=== PATIENT | male | born 1935 | race Caucasian/White ===

== ENCOUNTER 2017-09-19 09:45 | Outpatient (RCR) | payer MEDICARE, OTHER, SELFPAY ==
[2017-06-11 09:09] VITALS: TEMP 36.5
--- NOTE | 2017-06-12 10:06 | PT.OTN ---
Current Diagnoses Other symptoms and signs involving the musculoskeletal system (06/12/17) Weakness (06/12/17) On June 11, 2017 our therapy services consisting of Speech, Occupational, and Physical therapy transitioned from [employer] electronic documentation system to a new [employer] electronic system. All documentation prior to June 11 can be found under [employer] saved data. From June 11 forward, all medical record documentation will be in [employer].
--- NOTE | 2017-06-12 17:18 | PT.OTN ---
Current Diagnoses Other symptoms and signs involving the musculoskeletal system (06/12/17) Weakness (06/12/17) Physical Therapy Treatment Note PT-OP-A Visit Information Start: 06/12/17 10:16 Freq: Status: Active Protocol: Activity Type Activity Date Activity User E-Sign Co-Sign Detail Recorded Client Recorded Date Recorded By Document 06/12/17 12:41 GGD [email or web address] 06/12/17 12:47 GGD 06/12/17 12:41 Out-Patient Physical Therapy Visit Information [Visit Information] -Visit Type Treatment Note -Visit Note 04/20 visit for G-codes -Visit Start Time 12:00 -Visit Stop Time 12:43 -Total Visit Minutes 43 -Visit Number 12 -Number of UTILITIES OPERATOR Visits 1 [Evaluation Information] -Evaluation Date 05/03/17 PT-OP-C Subjective Start: 06/12/17 10:16 Freq: Status: Active Protocol: Activity Type Activity Date Activity User E-Sign Co-Sign Detail Recorded Client Recorded Date Recorded By Document 06/12/17 16:59 GGD [email or web address] 06/12/17 17:17 GGD 06/12/17 16:59 OP-PT Subjective [Patient Comments] -Patient Comments Pt states that his muscle tired after last visit. He is able to but his socks on when sitting on edge of bed. -Patient Reported Progress Improving PT-OP-Q Treatments Start: 06/12/17 10:16 Freq: Status: Active Protocol: Activity Type Activity Date Activity User E-Sign Co-Sign Detail Recorded Client Recorded Date Recorded By Document 06/12/17 16:59 GGD [email or web address] 06/12/17 17:17 GGD 06/12/17 16:59 Cardio Equipment [Recumbent Elliptical (Biodex)] -Duration (Minutes) 12 -Resistance 2 -Seat Position 16 -Other Arms for last 2 minutes Gym Equipment [Cable Column (Body Solid)] Leg Extension -Resistance 30 -Reps/Time 2 x 15 Leg Curl -Resistance 45 -Reps/Time 2 x 15 [Shuttle Recovery] Bilateral Squats -Resistance 100# -Shuttle Recovery Platform Stable -Reps/Time 2 x 15 Therapeutic Exercises [Supine Exercises] 1 -Supine Exercise Name Iliacus stretch -Side bilateral -Reps/Minutes 2 [Standing Exercises] 2 -Standing Exercise Name Hip Adduction -Side bilateral -Resistance Level 2 -Equipment Used Thera band -Reps/Minutes 15 1 -Standing Exercise Name Hip Abduction -Side bilateral -Resistance Level 2 -Equipment Used Thera band -Reps/Minutes 15 PT-OP-T Assessment and Plan Start: 06/12/17 10:16 Freq: Status: Active Protocol: Activity Type Activity Date Activity User E-Sign Co-Sign Detail Recorded Client Recorded Date Recorded By Document 06/12/17 16:59 GGD [email or web address] 06/12/17 17:17 GGD 06/12/17 16:59 Physical Therapy Assessment [Assessment Summary] -Assessment Pt improving with strengthening and decrease fatigue during exercises. He has improved upright posture in standing. Physical Therapy Plan [Frequency and Duration] -Frequency of Treatment 2x/Week -Duration of Treatment 2 months -Plan of Care Start Date 06/03/17 -Plan of Care End Date 08/02/17 [Next Visit Focus/Plan] -Next Visit Plan Progress under current plan. Including progressing LE strengthening, Sit to stand from chair without UE, progress ability for floor transfers .
--- NOTE | 2017-06-18 10:08 | PT.OTN ---
Current Diagnoses Other symptoms and signs involving the musculoskeletal system (06/17/17) Weakness (06/17/17) Physical Therapy Treatment Note PT-OP-A Visit Information Start: 06/12/17 10:16 Freq: Status: Active Protocol: Activity Type Activity Date Activity User E-Sign Co-Sign Detail Recorded Client Recorded Date Recorded By Document 06/17/17 09:44 LR [id number] 06/17/17 16:06 [facility] 06/17/17 09:44 Out-Patient Physical Therapy Visit Information [Visit Information] -Visit Type Treatment Note -Visit Start Time 09:07 -Visit Stop Time 09:50 -Visit Number 13 -Number of FOREIGN LAW CONSULTANT Visits 1 [Evaluation Information] -Evaluation Date 05/03/17 PT-OP-C Subjective Start: 06/12/17 10:16 Freq: Status: Active Protocol: Activity Type Activity Date Activity User E-Sign Co-Sign Detail Recorded Client Recorded Date Recorded By Document 06/17/17 09:44 LR [id number] 06/17/17 09:44 LRN 06/17/17 09:44 OP-PT Subjective [Patient Comments] -Patient Comments Feeling good today. -Patient Reported Progress Improving PT-OP-Q Treatments Start: 06/12/17 10:16 Freq: Status: Active Protocol: Activity Type Activity Date Activity User E-Sign Co-Sign Detail Recorded Client Recorded Date Recorded By Document 06/17/17 09:44 LRN [id number] 06/17/17 09:43 LRN 06/17/17 09:44 Cardio Equipment [Recumbent Stepper (Sci-Fit)] -Duration (Minutes) 12 -Resistance 3 -Seat Position 16 -Other Arms the last 2 minutes Gym Equipment [Cable Column (Body Solid)] Leg Extension -Resistance 35, 30, 30 -Reps/Time 10 each Leg Curl -Resistance 50 -Reps/Time 20,10 reps [Shuttle Recovery] Unilateral Squats -Details For strengthening for kneel to stand -Resistance 50# -Shuttle Recovery Platform Stable -Reps/Time 15 bilaterally Bilateral Squats -Resistance 100#, 112# -Shuttle Recovery Platform Stable -Reps/Time 2x15 Therapeutic Exercises [Supine Exercises] 1 -Supine Exercise Name Iliacus stretch -Side bilateral -Reps/Minutes 2 [Other Exercises] 2 -Other Exercise Name Kneeling to independent beauty consultant parallel bars -Side bilateral -Reps/Minutes 2 1 -Other Exercise Name Stretch to Iliacus f/b 10 buttock squeezes: in kneeling in parallel bars -Side bilateral -Reps/Minutes 4 -Comments Hold 60 sec each Self-Care/Home Management Treatment [Activities] -Self-Care/Home Management Activities Instructed pt in HEP of SLS in safe corner with chair in front. PT-OP-T Assessment and Plan Start: 06/12/17 10:16 Freq: Status: Active Protocol: Activity Type Activity Date Activity User E-Sign Co-Sign Detail Recorded Client Recorded Date Recorded By Document 06/17/17 09:44 LRN [email or web address] 06/18/17 09:33 LRN 06/17/17 09:44 Physical Therapy Assessment [Impairments] -Impairments Balance Posture ROM Strength -Other Impairments Self care: program needed. [Assessment Summary] -Assessment Pt able to position in kneeling with greater ease. R Iliopsoas is more retricted than L in mobility. Strength is improving in LE 's. Physical Therapy Plan [Frequency and Duration] -Frequency of Treatment 2x/Week -Duration of Treatment 6 weeks left -Plan of Care Start Date 06/03/17 -Plan of Care End Date 08/02/17 [Next Visit Focus/Plan] -Next Visit Plan Progress under current plan. Including progressing LE strengthening, Sit to stand from chair without UE, progress ability for floor transfers . Add Balance ex's.
--- NOTE | 2017-06-20 10:51 | PT.OTN ---
Current Diagnoses Other symptoms and signs involving the musculoskeletal system (06/20/17) Weakness (06/20/17) Physical Therapy Treatment Note PT-OP-A Visit Information Start: 06/12/17 10:16 Freq: Status: Active Protocol: Document 06/20/17 10:42 [facility] (Rec: 06/20/17 10:51 [facility] [email or web address]) Out-Patient Physical Therapy Visit Information Visit Information Visit Start Time 09:45 Visit Stop Time 10:30 Total Visit Minutes 45 Visit Number 14 Number of STAPLER MACHINE Visits 0 PT-OP-C Subjective Start: 06/12/17 10:16 Freq: Status: Active Protocol: Document 06/20/17 10:42 [facility] (Rec: 06/20/17 10:51 [facility] [email or web address]) OP-PT Subjective Patient Comments Patient Comments Gracy reports he has days when he feels stronger and other days he doesn't Patient Reported Progress Improving PT-OP-Q Treatments Start: 06/12/17 10:16 Freq: Status: Active Protocol: Document 06/20/17 10:42 [facility] (Rec: 06/20/17 10:51 [facility] [email or web address]) Cardio Equipment Recumbent Stepper (Sci-Fit) Duration (Minutes) 12 Resistance 3 Seat Position 16 Other Arms the last 2 minutes Gym Equipment Cable Column (Body Solid) Leg Extension Resistance 40 Reps/Time 3 sets of 10 reps Leg Curl Resistance 50 Reps/Time 3 sets of 10 reps Shuttle Recovery Bilateral Squats Resistance 112# Shuttle Recovery Platform Stable Reps/Time 3 sets of 10 reps Therapeutic Exercises Supine Exercises 1 Supine Exercise Name Iliacus stretch Side bilateral Reps/Minutes 2 Standing Exercises 4 Standing Exercise Name mini lunges in parallel bars Reps/Minutes 10 each side 3 Standing Exercise Name sit - stand with chair Reps/Minutes 2 sets 10 reps Comments verbal cueing for hip hinge Other Exercises 2 Other Exercise Name Kneeling to maintenance shop laborer parallel bars Side bilateral Reps/Minutes 2 1 Other Exercise Name Stretch to Iliacus f/b 10 buttock squeezes: in kneeling in parallel bars Side bilateral Reps/Minutes 4 Comments Hold 60 sec each PT-OP-T Assessment and Plan Start: 06/12/17 10:16 Freq: Status: Active Protocol: Document 06/20/17 10:42 [facility] (Rec: 06/20/17 10:51 [facility] [email or web address]) Physical Therapy Assessment Impairments Impairments Balance Posture ROM Strength Other Impairments Self care: program needed. Assessment Summary Assessment it was much easier for the patient to get up from a kneeling position with his right leg in front. Right hip is tighter in the hip flexor. He is requiring verbal cues for sit- stand to hinge at the hips. This hip hinge is very difficult for Sony to do Physical Therapy Plan Frequency and Duration Frequency of Treatment 2x/Week Plan of Care Start Date 06/03/17 Plan of Care End Date 08/02/17 Therapeutic Interventions Therapeutic Interventions Balance Training Home Exercise Program Neuromuscular Re-education Self-Care/Home Management Therapeutic Activities Therapeutic Exercises Next Visit Focus/Plan Next Visit Plan revisit sit to stand and hip hinge, continue to work on standing up from a kneeling position
--- NOTE | 2017-06-24 12:46 | PT.OTN ---
Current Diagnoses Other symptoms and signs involving the musculoskeletal system (06/24/17) Weakness (06/24/17) Physical Therapy Treatment Note PT-OP-A Visit Information Start: 06/12/17 10:16 Freq: Status: Active Protocol: Document 06/24/17 09:10 LRN (Rec: 06/24/17 11:04 LRN [id number]) Out-Patient Physical Therapy Visit Information Visit Information Visit Type Treatment Note Visit Note 08/20 Visit Start Time 09:03 Visit Stop Time 09:46 Total Visit Minutes 43 Visit Number 15 Number of MEDICAL EQUIPMENT REPAIRER Visits 0 Evaluation Information Evaluation Date 05/03/17 PT-OP-C Subjective Start: 06/12/17 10:16 Freq: Status: Active Protocol: Document 06/24/17 09:10 LRN (Rec: 06/24/17 09:45 LRN [id number]) OP-PT Subjective Patient Comments Patient Comments Yesterday was feeling really good, most of the day went without a cane. Today legs feel weak. Patient Reported Progress Worse PT-OP-Q Treatments Start: 06/12/17 10:16 Freq: Status: Active Protocol: Document 06/24/17 09:10 LRN (Rec: 06/24/17 09:45 LRN [id number]) Cardio Equipment Recumbent Stepper (Sci-Fit) Duration (Minutes) 12 Resistance 3 Seat Position 17 Other Arms the last 2 minutes Gym Equipment Cable Column (Body Solid) Leg Extension Resistance 30 Reps/Time 15,10,5, 10 reps Leg Curl Resistance 50 Reps/Time 4 sets of 10 reps Shuttle Recovery Bilateral Squats Details Pt in squat position with Multifidus contracted to asst Gluteal strengthening Resistance 100# Shuttle Recovery Platform Stable Reps/Time 3 sets of 15 reps Therapeutic Exercises Standing Exercises 1 Standing Exercise Name Hip Abduction Side bilateral Reps/Minutes 15 Comments Focus on correct posture with exercise Other Exercises 2 Comments Held, pt feeling too weak 1 Other Exercise Name Stretch to Iliacus f/b 10 buttock squeezes: in kneeling in parallel bars Side bilateral Reps/Minutes 2 reps Comments Hold 60 sec each PT-OP-T Assessment and Plan Start: 06/12/17 10:16 Freq: Status: Active Protocol: Document 06/24/17 09:10 LRN (Rec: 06/24/17 09:45 LRN [id number]) Physical Therapy Assessment Impairments Impairments Balance Posture ROM Strength Other Impairments Self care: program needed. Assessment Summary Assessment Pt has less tolerance to exercise today than previously due to his feeling weak. Pt may be a little dehydrated with change in weather and reported no change in fluid intake with a couple cups of coffee. Pt agreeable to drinking water with cardio-exercise. Physical Therapy Plan Frequency and Duration Frequency of Treatment 2x/Week Duration of Treatment 5 weeks left Plan of Care Start Date 06/03/17 Plan of Care End Date 08/02/17 Therapeutic Interventions Therapeutic Interventions Balance Training Home Exercise Program Neuromuscular Re-education Self-Care/Home Management Therapeutic Activities Therapeutic Exercises Next Visit Focus/Plan Next Visit Plan Assess sit to stand and hip hinge if pt feeling better next visit, continue to work on standing up from a kneeling position, and corner balance training review.
--- NOTE | 2017-06-24 15:05 | PT.OTN ---
Current Diagnoses Other symptoms and signs involving the musculoskeletal system (06/24/17) Weakness (06/24/17) Physical Therapy Treatment Note PT-OP-A Visit Information Start: 06/12/17 10:16 Freq: Status: Active Protocol: Document 06/24/17 09:10 LRN (Rec: 06/24/17 11:04 LRN [id number]) Out-Patient Physical Therapy Visit Information Visit Information Visit Type Treatment Note Visit Note 08/20 Visit Start Time 09:03 Visit Stop Time 09:46 Total Visit Minutes 43 Visit Number 15 Number of COUNTY COMMISSIONER Visits 0 Evaluation Information Evaluation Date 05/03/17 PT-OP-C Subjective Start: 06/12/17 10:16 Freq: Status: Active Protocol: Document 06/24/17 09:10 LRN (Rec: 06/24/17 09:45 LRN [id number]) OP-PT Subjective Patient Comments Patient Comments Yesterday was feeling really good, most of the day went without a cane. Today legs feel weak. Patient Reported Progress Worse PT-OP-Q Treatments Start: 06/12/17 10:16 Freq: Status: Active Protocol: Document 06/24/17 09:10 LRN (Rec: 06/24/17 09:45 LRN [id number]) Cardio Equipment Recumbent Stepper (Sci-Fit) Duration (Minutes) 12 Resistance 3 Seat Position 17 Other Arms the last 2 minutes Gym Equipment Cable Column (Body Solid) Leg Extension Resistance 30 Reps/Time 15,10,5, 10 reps Leg Curl Resistance 50 Reps/Time 4 sets of 10 reps Shuttle Recovery Bilateral Squats Details Pt in squat position with Multidus contracted to asst Gluteal strengthening Resistance 100# Shuttle Recovery Platform Stable Reps/Time 3 sets of 15 reps Therapeutic Exercises Standing Exercises 1 Standing Exercise Name Hip Abduction Side bilateral Reps/Minutes 15 Comments Focus on correct posture with exercise Other Exercises 2 Comments Held, pt feeling too weak 1 Other Exercise Name Stretch to Iliacus f/b 10 buttock squeezes: in kneeling in parallel bars Side bilateral Reps/Minutes 2 reps Comments Hold 60 sec each PT-OP-T Assessment and Plan Start: 06/12/17 10:16 Freq: Status: Active Protocol: Document 06/24/17 09:10 LRN (Rec: 06/24/17 09:45 LRN [id number]) Physical Therapy Assessment Impairments Impairments Balance Posture ROM Strength Other Impairments Self care: program needed. Assessment Summary Assessment Pt has less tolerance to exercise today than previously due to his feeling weak. Pt may be a little dehydrated with change in weather and reported no change in fluid intake with a couple cups of coffee. Pt agreeable to drinking water with cardioexercise. Physical Therapy Plan Frequency and Duration Frequency of Treatment 2x/Week Duration of Treatment 5 weeks left Plan of Care Start Date 06/03/17 Plan of Care End Date 08/02/17 Therapeutic Interventions Therapeutic Interventions Balance Training Home Exercise Program Neuromuscular Re-education Self-Care/Home Management Therapeutic Activities Therapeutic Exercises Next Visit Focus/Plan Next Visit Plan Assess sit to stand and hip hinge if pt feeling better next visit, continue to work on standing up from a kneeling position, and corner balance training review. Progress note in 2 visits.
--- NOTE | 2017-06-27 15:25 | PT.OTN ---
Current Diagnoses Other symptoms and signs involving the musculoskeletal system (06/27/17) Weakness (06/27/17) Physical Therapy Treatment Note PT-OP-A Visit Information Start: 06/12/17 10:16 Freq: Status: Active Protocol: Document 06/27/17 09:06 LRN (Rec: 06/27/17 13:43 LRN [id number]) Out-Patient Physical Therapy Visit Information Visit Information Visit Type Treatment Note Visit Note 09/20 Visit Start Time 09:05 Visit Stop Time 09:52 Total Visit Minutes 47 Visit Number 16 Number of CODE MACHINE OPERATOR Visits 0 Evaluation Information Evaluation Date 05/03/17 PT-OP-C Subjective Start: 06/12/17 10:16 Freq: Status: Active Protocol: Document 06/27/17 09:05 LRN (Rec: 06/27/17 09:47 LRN [id number]) OP-PT Subjective Patient Comments Patient Comments Spouse states he is sore, pt states he is okay. States yesterday was the best day so far because legs feel strong. Still a problem getting up into machinery. Patient Reported Progress Improving PT-OP-Q Treatments Start: 06/12/17 10:16 Freq: Status: Active Protocol: Document 06/27/17 09:05 LRN (Rec: 06/27/17 09:47 LRN [id number]) Cardio Equipment Recumbent Stepper (Sci-Fit) Duration (Minutes) 12 Resistance 3 Seat Position 17 Other Arms the last 2 minutes Gym Equipment Cable Column (Body Solid) Leg Extension Resistance 35#, 30# Reps/Time 8, 10x3 respectively Leg Curl Resistance 50 Reps/Time 4 sets of 10 reps Shuttle Recovery Bilateral Squats Details Pt in squat position with Multifidus contracted to asst Gluteal strengthening Resistance 100# Shuttle Recovery Platform Stable Reps/Time 3 sets of 15 reps Therapeutic Exercises Standing Exercises 2 Standing Exercise Name Stepping foot up on 1' height step Side bilateral Reps/Minutes 10x2 Comments Pt needed rests between bouts 1 Standing Exercise Name Hip Abduction Side bilateral Reps/Minutes 15 x 2 Comments Focus on correct posture with exercise Other Exercises 2 Other Exercise Name Kneel to stand Side bilateral Reps/Minutes 2 reps 1 Other Exercise Name Stretch to Iliacus f/b 10 buttock squeezes: in kneeling in parallel bars Side bilateral Reps/Minutes 2 reps Comments Hold 60 sec stretch, 2 sec PT-OP-T Assessment and Plan Start: 06/12/17 10:16 Freq: Status: Active Protocol: Document 06/27/17 09:05 LRN (Rec: 06/27/17 09:47 LRN [id number]) Physical Therapy Assessment Progress Towards Goals Progress Towards Goals Progressing Toward Goals Assessment Summary Assessment Pt gluteals appear atrophied; therefore he is having difficulty kneel to stand. Further strengthening needed for gluteals. Physical Therapy Plan Frequency and Duration Frequency of Treatment 2x/Week Duration of Treatment 5 weeks left Plan of Care Start Date 06/03/17 Plan of Care End Date 08/02/17 Therapeutic Interventions Therapeutic Interventions Balance Training Home Exercise Program Neuromuscular Re-education Self-Care/Home Management Therapeutic Activities Therapeutic Exercises Next Visit Focus/Plan Next Visit Plan Remeasure, PN. Focus next 4 weeks on floor to stand and motion of stepping up into high machinery.
--- NOTE | 2017-07-02 16:17 | PT.OTN ---
Addendum entered and electronically signed by Maria Victoria Pearson, PT 07/02/17 16:18: Pt seen 07/01/17, note written 07/02/17. Original Note: Current Diagnoses Other symptoms and signs involving the musculoskeletal system (07/01/17) Weakness (07/01/17) Physical Therapy Treatment Note PT-OP-A Visit Information Start: 06/12/17 10:16 Freq: Status: Active Protocol: Document 07/01/17 09:07 LRN (Rec: 07/01/17 09:50 LRN [id number]) Out-Patient Physical Therapy Visit Information Visit Information Visit Type Treatment Note Visit Note 10/21 - PN Visit Start Time 09:07 Visit Stop Time 09:59 Total Visit Minutes 52 Visit Number 17 Number of TIEING MACHINE OPERATOR Visits 0 Evaluation Information Evaluation Date 05/03/17 PT-OP-C Subjective Start: 06/12/17 10:16 Freq: Status: Active Protocol: Document 07/01/17 09:07 LRN (Rec: 07/01/17 09:50 LRN [id number]) OP-PT Subjective Patient Comments Patient Comments Did 9 hrs work using arms and L foot. States he almost fell coming into the clinic because he was sleepy. States he is able to get into his machine without help. States he modified how he was putting his socks/shoes on so now he has no trouble. Patient Reported Progress Improving Patient Questionnaires ABC- Activity Specific Balance Confidence Scale ABC Score 985/16=61.5 ABC Functional Impairment 20 to <40% Impaired (Score 61- 80) PT-OP-E Functional Tests Start: 07/02/17 15:42 Freq: Status: Active Protocol: Document 07/01/17 09:07 LRN (Rec: 07/02/17 15:45 LRN [id number]) Functional Tests Five Times Sit to Stand Test Score 29 secs Timed Up and Go (TUG) Score 14 sec's Comments No cane - 14 sec's. With cane - 12 sec's TUG Impairment Rating 40 to <60% Impaired (Score 14- 15) PT-OP-M Strength Start: 06/12/17 10:16 Freq: Status: Active Protocol: Document 07/01/17 09:07 LRN (Rec: 07/01/17 09:50 LRN [id number]) Hip Strength Hip Manual Muscle Testing Right Flexion (L2) 3- Fair- Extension (S1) 3- Fair- Abduction 3- Fair- Adduction 1 Trace External Rotation 3- Fair- Internal Rotation 4 Good Left Flexion (L2) 3 Fair Extension (S1) 2+ Poor+ Abduction 3- Fair- Adduction 1 Trace External Rotation 3- Fair- Internal Rotation 4 Good PT-OP-Q Treatments Start: 06/12/17 10:16 Freq: Status: Active Protocol: Document 07/01/17 09:07 LRN (Rec: 07/01/17 09:50 LRN [id number]) Cardio Equipment Recumbent Stepper (Sci-Fit) Duration (Minutes) 10 Resistance 3 Seat Position 15 Gym Equipment Cable Column (Body Solid) Leg Extension Resistance 35#, 30# Reps/Time 10x2, 10 respectively Leg Curl Resistance 50 Reps/Time 4 sets of 10 reps Therapeutic Exercises Other Exercises 3 Other Exercise Name General Hip strengthening 4- way on plinth Reps/Minutes 4-5 reps each 1 Other Exercise Name Stretch to Iliacus f/b 10 buttock squeezes: in kneeling in parallel bars Side bilateral Reps/Minutes 2 reps Comments Hold 60 sec stretch, 2 sec PT-OP-T Assessment and Plan Start: 06/12/17 10:16 Freq: Status: Active Protocol: Document 07/01/17 09:07 LRN (Rec: 07/01/17 09:50 LRN [id number]) Physical Therapy Assessment Rehab Potential Rehabilitation Potential Good Impairments Impairments Balance Posture ROM Strength Other Impairments Self care: program needed. 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 Barriers to Rehabilitation See above. Goals Seven Impairment Decreased endurance per 5TSTS of 20 secs with use of arms. Cellophaner Goal (LTG) Pt will be able to get up from chair without use of arm rests. LTG Duration 08/02/17. Six Impairment TUG Score 12-13 (20% to <40% impaired) Long-Term Goal (LTG) Improve Balance: TUG Score: 11 or less (1% < 20% impaired). LTG Duration 08/02/17 Five Impairment Decreased LE strength Long-Term Goal (LTG) Pt will demonstrate improved LE strength by 1/2 grade to be able to get off the floor with use of chair for assist. LTG Duration 08/02/17 Four Impairment Thoracic weakness Long-Term Goal (LTG) Pt will be able to improve core strength 1/2 grade to decrease his risk of falling. LTG Duration 08/02/17 Three Impairment Hips flexed 10 deg's in standing Short Term Goal (STG) Pt will be able to static stand without hip/knees flexed STG Duration 07/16/17 Two Impairment Decreased postural awareness of good sitting posture Short Term Goal (STG) PT will be able to self correct his sitting posture with cuing. STG Duration 07/16/17. One Impairment Lacks appropriate HEP Cellophaner Goal (LTG) Pt independent with HEP/Self care. LTG Duration 08/02/17 Progress Towards Goals Progress Comments The pt has been started on a HEP for his current status. His standing posture is more upright, but tightness persists at his hips causing some forward bending with stance and gait. His LE strength is improving. His chemotherapy hinders his strengthening progression; therefore further skilled physical therapy to improve his strength and stability in order to decrease his risk of falling and improve his functional level is recommended. Assessment Summary Assessment The pt remains weak in his gluteal muscles and is generally deconditioned. Recommend further physical therapy. Physical Therapy Plan Frequency and Duration Frequency of Treatment 2x/Week Duration of Treatment 5 weeks Plan of Care Start Date 06/03/17 Plan of Care End Date 08/02/17 Therapeutic Interventions Therapeutic Interventions Balance Training Home Exercise Program Neuromuscular Re-education Self-Care/Home Management Therapeutic Activities Therapeutic Exercises Next Visit Focus/Plan Next Visit Plan Focus next 5 weeks on improving proving standing posture, sit to stand ability, floor to stand and motion of stepping up into high machinery. [ End ]
--- NOTE | 2017-07-02 16:18 | PT.OPPOC ---
Current Diagnoses Other symptoms and signs involving the musculoskeletal system (07/01/17) Weakness (07/01/17) Provider Visit Care Team Role Provider Type Brigido Avalos MD Attending Provider Physician Family Provider Primary Care Provider Specialty: Family Practice Address: [address] [place] [address], [id number] Email: [email or web address] Plan Of Care PT-OP-T Assessment and Plan Start: 06/12/17 10:16 Freq: Status: Active Protocol: Document 07/01/17 09:07 LRN (Rec: 07/01/17 09:50 LRN [id number]) Physical Therapy Assessment Rehab Potential Rehabilitation Potential Good Impairments Impairments Balance Posture ROM Strength Other Impairments Self care: program needed. 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 Barriers to Rehabilitation See above. Goals Seven Impairment Decreased endurance per 5TSTS of 20 secs with use of arms. Shift Engineer Goal (LTG) Pt will be able to get up from chair without use of arm rests. LTG Duration 08/02/17. Six Impairment TUG Score 12-13 (20% to <40% impaired) Shift Engineer Goal (LTG) Improve Balance: TUG Score: 11 or less (1% < 20% impaired). LTG Duration 08/02/17 Five Impairment Decreased LE strength Skilled Nursing Goal (LTG) Pt will demonstrate improved LE strength by 1/2 grade to be able to get off the floor with use of chair for assist. LTG Duration 08/02/17 Four Impairment Thoracic weakness Shift Engineer Goal (LTG) Pt will be able to improve core strength 1/2 grade to decrease his risk of falling. LTG Duration 08/02/17 Three Impairment Hips flexed 10 deg's in standing Short Term Goal (STG) Pt will be able to static stand without hip/knees flexed STG Duration 07/16/17 Two Impairment Decreased postural awareness of good sitting posture Short Term Goal (STG) PT will be able to self correct his sitting posture with cuing. STG Duration 07/16/17. One Impairment Lacks appropriate HEP Shift Engineer Goal (LTG) Pt independent with HEP/Self care. LTG Duration 08/02/17 Progress Towards Goals Progress Comments The pt has been started on a HEP for his current status. His standing posture is more upright, but tightness persists at his hips causing some forward bending with stance and gait. His LE strength is improving. His chemotherapy hinders his strengthening progression; therefore further skilled physical therapy to improve his strength and stability in order to decrease his risk of falling and improve his functional level is recommended. Assessment Summary Assessment The pt remains weak in his gluteal muscles and is generally deconditioned. Recommend further physical therapy. Physical Therapy Plan Frequency and Duration Frequency of Treatment 2x/Week Duration of Treatment 5 weeks Plan of Care Start Date 06/03/17 Plan of Care End Date 08/02/17 Therapeutic Interventions Therapeutic Interventions Balance Training Home Exercise Program Neuromuscular Re-education Self-Care/Home Management Therapeutic Activities Therapeutic Exercises Next Visit Focus/Plan Next Visit Plan Focus next 5 weeks on improving proving standing posture, sit to stand ability, floor to stand and motion of stepping up into high machinery. [ End ] Plan of Care Dates Plan of Care Start Date 06/03/17 Plan of Care End Date 08/02/17 Please Sign and Return: I have reviewed this Plan of Care and certify that the skilled therapy services above are required to meet the patient???s needs. Physician Signature Date Printed Name and Credentials Clinical Instructor Signature Printed Name and Credentials
--- NOTE | 2017-07-04 16:28 | PT.OTN ---
Current Diagnoses Other symptoms and signs involving the musculoskeletal system (07/04/17) Weakness (07/04/17) Physical Therapy Treatment Note PT-OP-A Visit Information Start: 06/12/17 10:16 Freq: Status: Active Protocol: Document 07/04/17 09:03 LRN (Rec: 07/04/17 09:46 LRN [id number]) Out-Patient Physical Therapy Visit Information Visit Information Visit Type Treatment Note Visit Note 02/20 after PN Visit Start Time 09:03 Visit Stop Time 09:52 Total Visit Minutes 49 Visit Number 18 Number of SUPERVISOR SECURITIES VAULT Visits 0 Evaluation Information Evaluation Date 05/03/17 PT-OP-C Subjective Start: 06/12/17 10:16 Freq: Status: Active Protocol: Document 07/04/17 09:03 LRN (Rec: 07/04/17 09:46 LRN [id number]) OP-PT Subjective Patient Comments Patient Comments Tired yestday, 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 Just driving, but stood up between pick ups Did anterior hip stretch. States he is able to roll around on table easier . PT-OP-E Functional Tests Start: 07/02/17 15:42 Freq: Status: Active Protocol: Document 07/01/17 09:07 LRN (Rec: 07/02/17 15:45 LRN [id number]) Functional Tests Five Times Sit to Stand Test Score 29 secs Timed Up and Go (TUG) Score 14 sec's Comments No cane - 14 sec's. With cane - 12 sec's TUG Impairment Rating 40 to <60% Impaired (Score 14- 15) PT-OP-M Strength Start: 06/12/17 10:16 Freq: Status: Active Protocol: Document 07/01/17 09:07 LRN (Rec: 07/01/17 09:50 LRN [id number]) Hip Strength Hip Manual Muscle Testing Right Flexion (L2) 3- Fair- Extension (S1) 3- Fair- Abduction 3- Fair- Adduction 1 Trace External Rotation 3- Fair- Internal Rotation 4 Good Left Flexion (L2) 3 Fair Extension (S1) 2+ Poor+ Abduction 3- Fair- Adduction 1 Trace External Rotation 3- Fair- Internal Rotation 4 Good PT-OP-Q Treatments Start: 06/12/17 10:16 Freq: Status: Active Protocol: Document 07/04/17 09:03 LRN (Rec: 07/04/17 09:46 LRN [id number]) Cardio Equipment Recumbent Stepper (Sci-Fit) Duration (Minutes) 12 Resistance 3 Seat Position 15 Other Arms the last 2 minutes Gym Equipment Cable Column (Body Solid) Leg Extension Resistance 45# Reps/Time 8x1 Leg Curl Resistance 55# Reps/Time 8x3 Shuttle Recovery Bilateral Squats Details Pt in squat position Resistance 100# Shuttle Recovery Platform Stable Reps/Time 10 x3 Therapeutic Exercises Supine Exercises 1 Supine Exercise Name Iliacus stretch, followed by active hip extension - 10 reps Side bilateral Reps/Minutes 2 Standing Exercises 5 Standing Exercise Name Hip AD Side bilateral Comments Pt not able to maintain straight Leg or upright posture even with training 2 Standing Exercise Name Stepping foot up on 1' height step Side bilateral Reps/Minutes 10x2 Comments 12 step up with anterior hip stretch. Pt needed rests between bouts 1 Standing Exercise Name Hip Abduction Side bilateral Reps/Minutes 15 x 2 Comments Focus on correct posture with exercise PT-OP-T Assessment and Plan Start: 06/12/17 10:16 Freq: Status: Active Protocol: Document 07/04/17 09:03 LRN (Rec: 07/04/17 09:46 LRN [id number]) Physical Therapy Assessment Impairments Impairments Balance Posture ROM Strength Other Impairments Self care: program needed. Goals Seven Impairment Decreased endurance per 5TSTS of 20 secs with use of arms. Intermediate Goal (LTG) Pt will be able to get up from chair without use of arm rests. LTG Duration 08/02/17. Six Impairment TUG Score 12-13 (20% to <40% impaired) Intermediate Goal (LTG) Improve Balance: TUG Score: 11 or less (1% < 20% impaired). LTG Duration 08/02/17 Five Impairment Decreased LE strength Outboard Motors Experimental Mechanic Goal (LTG) Pt will demonstrate improved LE strength by 1/2 grade to be able to get off the floor with use of chair for assist. LTG Duration 08/02/17 Four Impairment Thoracic weakness Intermediate Goal (LTG) Pt will be able to improve core strength 1/2 grade to decrease his risk of falling. LTG Duration 08/02/17 Three Impairment Hips flexed 10 deg's in standing Short Term Goal (STG) Pt will be able to static stand without hip/knees flexed STG Duration 07/16/17 Two Impairment Decreased postural awareness of good sitting posture Short Term Goal (STG) PT will be able to self correct his sitting posture with cuing. STG Duration 07/16/17. One Impairment Lacks appropriate HEP Outboard Motors Experimental Mechanic Goal (LTG) Pt independent with HEP/Self care. LTG Duration 08/02/17 Assessment Summary Assessment Pt LE strength is improving. Posture appears improving with v.cuing. Physical Therapy Plan Frequency and Duration Frequency of Treatment 2x/Week Duration of Treatment 4 weeks Plan of Care Start Date 06/03/17 Plan of Care End Date 08/02/17 Next Visit Focus/Plan Next Visit Plan Focus on improving proving standing posture, sit to stand ability, floor to stand and motion of stepping up into high machinery. [ End ]
--- NOTE | 2017-07-09 15:31 | PT.OTN ---
Current Diagnoses Other symptoms and signs involving the musculoskeletal system (07/09/17) Weakness (07/09/17) Physical Therapy Treatment Note PT-OP-A Visit Information Start: 06/12/17 10:16 Freq: Status: Active Protocol: Document 07/09/17 09:07 LRN (Rec: 07/09/17 09:47 LRN [id number]) Out-Patient Physical Therapy Visit Information Visit Information Visit Type Treatment Note Visit Note 02/20 after PN Visit Start Time 09:07 Visit Stop Time 09:53 Total Visit Minutes 46 Visit Number 19 Number of JEWELRY ENGRAVER Visits 0 Evaluation Information Evaluation Date 05/03/17 PT-OP-C Subjective Start: 06/12/17 10:16 Freq: Status: Active Protocol: Document 07/09/17 09:07 LRN (Rec: 07/09/17 09:47 LRN [id number]) OP-PT Subjective Patient Comments Patient Comments Did not exercise over holiday weekend PT-OP-E Functional Tests Start: 07/02/17 15:42 Freq: Status: Active Protocol: Document 07/01/17 09:07 LRN (Rec: 07/02/17 15:45 LRN [id number]) Functional Tests Five Times Sit to Stand Test Score 29 secs Timed Up and Go (TUG) Score 14 sec's Comments No cane - 14 sec's. With cane - 12 sec's TUG Impairment Rating 40 to <60% Impaired (Score 14- 15) PT-OP-M Strength Start: 06/12/17 10:16 Freq: Status: Active Protocol: Document 07/01/17 09:07 LRN (Rec: 07/01/17 09:50 LRN [id number]) Hip Strength Hip Manual Muscle Testing Right Flexion (L2) 3- Fair- Extension (S1) 3- Fair- Abduction 3- Fair- Adduction 1 Trace External Rotation 3- Fair- Internal Rotation 4 Good Left Flexion (L2) 3 Fair Extension (S1) 2+ Poor+ Abduction 3- Fair- Adduction 1 Trace External Rotation 3- Fair- Internal Rotation 4 Good PT-OP-Q Treatments Start: 06/12/17 10:16 Freq: Status: Active Protocol: Document 07/09/17 09:07 LRN (Rec: 07/09/17 09:47 LRN [id number]) Cardio Equipment Recumbent Stepper (Sci-Fit) Duration (Minutes) 12 Resistance 3 Seat Position 15 Other Arms the last 2 minutes Gym Equipment Cable Column (Body Solid) Leg Extension Resistance 45# Reps/Time 8x3 Leg Curl Resistance 55# Reps/Time 8x3 Therapeutic Exercises Supine Exercises 1 Supine Exercise Name Iliacus stretch, followed by active hip extension - 10 reps Side bilateral Reps/Minutes 2 Standing Exercises 2 Standing Exercise Name Stepping foot up on 12 height step Side bilateral Reps/Minutes 10x2 Comments 12 step up with anterior hip stretch. Pt needed rests between bouts 1 Standing Exercise Name Hip Abduction Side bilateral Reps/Minutes 15 x 2 Comments Focus on correct posture with exercise Other Exercises 2 Other Exercise Name Kneel to stand Side bilateral Reps/Minutes 2 reps Comments Pt had difficulty getting up with R leg forward (kneeling on L knee) 1 Other Exercise Name Stretch to Iliacus f/b 10 buttock squeezes: in kneeling in parallel bars Side bilateral Reps/Minutes 2 reps Comments Hold 60 sec stretch, 2 sec PT-OP-T Assessment and Plan Start: 06/12/17 10:16 Freq: Status: Active Protocol: Document 07/09/17 09:07 LRN (Rec: 07/09/17 09:47 LRN [id number]) Physical Therapy Assessment Impairments Impairments Balance Posture ROM Strength Other Impairments Self care: program needed. Goals Seven Impairment Decreased endurance per 5TSTS of 20 secs with use of arms. Vocational Ed Instructor Goal (LTG) Pt will be able to get up from chair without use of arm rests. LTG Duration 08/02/17. Six Impairment TUG Score 12-13 (20% to <40% impaired) Vocational Ed Instructor Goal (LTG) Improve Balance: TUG Score: 11 or less (1% < 20% impaired). LTG Duration 08/02/17 Five Impairment Decreased LE strength Vocational Ed Instructor Goal (LTG) Pt will demonstrate improved LE strength by 1/2 grade to be able to get off the floor with use of chair for assist. LTG Duration 08/02/17 Four Impairment Thoracic weakness Mcc Goal (LTG) Pt will be able to improve core strength 1/2 grade to decrease his risk of falling. LTG Duration 08/02/17 Three Impairment Hips flexed 10 deg's in standing Short Term Goal (STG) Pt will be able to static stand without hip/knees flexed STG Duration 07/16/17 Two Impairment Decreased postural awareness of good sitting posture Short Term Goal (STG) PT will be able to self correct his sitting posture with cuing. 07/09/17: Pt is self correcting standing posture 50 % of the time STG Duration 07/16/17. One Impairment Lacks appropriate HEP Mcc Goal (LTG) Pt independent with HEP/Self care. LTG Duration 08/02/17 Progress Towards Goals Progress Comments Pt posture is improving. Weakness with getting off floor while kneeling on L knee . Assessment Summary Assessment Pt able to lift his L leg with step up ex with 50% assist, R leg needs assist for guidance to pick foot up to step and assist to lift leg when lowering off the 12 step. Physical Therapy Plan Frequency and Duration Frequency of Treatment 2x/Week Duration of Treatment 4 weeks Plan of Care Start Date 06/03/17 Plan of Care End Date 08/02/17 Therapeutic Interventions Therapeutic Interventions Balance Training Home Exercise Program Neuromuscular Re-education Self-Care/Home Management Therapeutic Activities Therapeutic Exercises Next Visit Focus/Plan Next Visit Plan Focus on improving proving standing posture, sit to stand ability, floor to stand and motion of stepping up into high machinery. [ End ]
--- NOTE | 2017-07-11 15:25 | PT.OTN ---
Current Diagnoses Other symptoms and signs involving the musculoskeletal system (07/11/17) Weakness (07/11/17) Physical Therapy Treatment Note PT-OP-A Visit Information Start: 06/12/17 10:16 Freq: Status: Active Protocol: Document 07/11/17 09:04 LRN (Rec: 07/11/17 09:47 LRN [id number]) Out-Patient Physical Therapy Visit Information Visit Information Visit Type Treatment Note Visit Note 04/20 after PN Visit Start Time 09:04 Visit Stop Time 09:54 Total Visit Minutes 50 Visit Number 20 Number of BARISTA Visits 0 Evaluation Information Evaluation Date 05/03/17 PT-OP-C Subjective Start: 06/12/17 10:16 Freq: Status: Active Protocol: Document 07/11/17 09:04 LRN (Rec: 07/11/17 15:14 LRN [id number]) OP-PT Subjective Patient Comments Patient Comments States he fell the day of last treatment 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 He was holding a jug of water in his L hand and fell to the left, hitting his head on a wall. He's not sure how he was able to sit himself upright, but after falling the next thing he remembered was being up in sitting. He had stitches to his head for the cuts. He feels no different and does not want to miss physical therapy. PT-OP-E Functional Tests Start: 07/02/17 15:42 Freq: Status: Active Protocol: Document 07/01/17 09:07 LRN (Rec: 07/02/17 15:45 LRN [id number]) Functional Tests Five Times Sit to Stand Test Score 29 secs Timed Up and Go (TUG) Score 14 sec's Comments No cane - 14 sec's. With cane - 12 sec's TUG Impairment Rating 40 to <60% Impaired (Score 14- 15) PT-OP-M Strength Start: 06/12/17 10:16 Freq: Status: Active Protocol: Document 07/01/17 09:07 LRN (Rec: 07/01/17 09:50 LRN [id number]) Hip Strength Hip Manual Muscle Testing Right Flexion (L2) 3- Fair- Extension (S1) 3- Fair- Abduction 3- Fair- Adduction 1 Trace External Rotation 3- Fair- Internal Rotation 4 Good Left Flexion (L2) 3 Fair Extension (S1) 2+ Poor+ Abduction 3- Fair- Adduction 1 Trace External Rotation 3- Fair- Internal Rotation 4 Good PT-OP-Q Treatments Start: 06/12/17 10:16 Freq: Status: Active Protocol: Document 07/11/17 09:04 LRN (Rec: 07/11/17 09:47 LRN [id number]) Cardio Equipment Recumbent Stepper (Sci-Fit) Duration (Minutes) 12 Resistance 3 Seat Position 15 Other Arms the last 2 minutes Gym Equipment Cable Column (Body Solid) Leg Extension Resistance 45# Reps/Time 8x3 Leg Curl Resistance 55# Reps/Time 8x3 Shuttle Recovery Unilateral Squats Details For strengthening for kneel to stand Resistance 50# Shuttle Recovery Platform Stable Reps/Time 8x2 Bilateral Squats Details Pt in squat position Resistance 100# Shuttle Recovery Platform Stable Reps/Time 10 x1 Therapeutic Exercises Standing Exercises 4 Standing Exercise Name Hip ext with T-Band around ankles. Side bilateral Reps/Minutes 10 x 3 Standing Exercise Name With foot on 12 step: Hip flex lifts off step Reps/Minutes 10, 8x2 2 Standing Exercise Name Stepping foot up on 12 height step Side bilateral Reps/Minutes 10x1, 8x3 Comments 12 step up with anterior hip stretch. Pt needed rests between bouts PT-OP-T Assessment and Plan Start: 06/12/17 10:16 Freq: Status: Active Protocol: Document 07/11/17 09:04 LRN (Rec: 07/11/17 15:19 LRN [id number]) Physical Therapy Assessment Impairments Impairments Balance Posture ROM Strength Other Impairments Self care: program needed. Goals Seven Impairment Decreased endurance per 5TSTS of 20 secs with use of arms. [facility] Goal (LTG) Pt will be able to get up from chair without use of arm rests. LTG Duration 08/02/17. Six Impairment TUG Score 12-13 (20% to <40% impaired) [facility] Goal (LTG) Improve Balance: TUG Score: 11 or less (1% < 20% impaired). 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 LTG Duration 08/02/17 Four Impairment Thoracic weakness [facility] Goal (LTG) Pt will be able to improve core strength 1/2 grade to decrease his risk of falling. LTG Duration 08/02/17 Three Impairment Hips flexed 10 deg's in standing Short Term Goal (STG) Pt will be able to static stand without hip/knees flexed STG Duration 07/16/17 Two Impairment Decreased postural awareness of good sitting posture Short Term Goal (STG) PT will be able to self correct his sitting posture with cuing. 07/09/17: Pt is self correcting standing posture 50 % of the time STG Duration 07/16/17. One Impairment Lacks appropriate HEP [facility] Goal (LTG) Pt independent with HEP/Self care. LTG Duration 08/02/17 Assessment Summary Assessment Pt is able to lift his L leg with ease for 10 reps. Lifting of his R leg appears easier and pt can do without assist for 1-2 reps. Pt balance appears unchanged. Held Iliopsoas stretch from the ground due to recent fall. Pt was slow with ex today. Physical Therapy Plan Frequency and Duration Frequency of Treatment 2x/Week Duration of Treatment 4 weeks Plan of Care Start Date 06/03/17 Plan of Care End Date 08/02/17 Therapeutic Interventions Therapeutic Interventions Balance Training Home Exercise Program Neuromuscular Re-education Self-Care/Home Management Therapeutic Activities Therapeutic Exercises Next Visit Focus/Plan Next Visit Plan Recheck TUG for change in safety with gait since fall. Discuss need for MD recheck if TUG score is worse. Focus on improving proving standing posture, sit to stand ability, floor to stand and motion of stepping up into high machinery. [ End ]
--- NOTE | 2017-07-23 15:59 | PT.OTN ---
Current Diagnoses Other symptoms and signs involving the musculoskeletal system (07/23/17) Weakness (07/23/17) Physical Therapy Treatment Note PT-OP-A Visit Information Start: 06/12/17 10:16 Freq: Status: Active Protocol: Document 07/23/17 10:30 GGD (Rec: 07/23/17 15:18 GGD [email or web address]) Out-Patient Physical Therapy Visit Information Visit Information Visit Type Treatment Note Visit Note 05/21 after PN Visit Start Time 10:30 Visit Stop Time 11:40 Total Visit Minutes 40 Visit Number 21 Evaluation Information Evaluation Date 05/03/17 PT-OP-C Subjective Start: 06/12/17 10:16 Freq: Status: Active Protocol: Document 07/23/17 10:30 GGD (Rec: 07/23/17 15:18 GGD [email or web address]) OP-PT Subjective Patient Comments Patient Comments States he as been very tired and fatigued and not able to do much all last week. PT-OP-E Functional Tests Start: 07/02/17 15:42 Freq: Status: Active Protocol: Document 07/23/17 10:30 GGD (Rec: 07/23/17 15:18 GGD [email or web address]) Functional Tests Timed Up and Go (TUG) Score 11.21 Comments with cane 12 secs without cane PT-OP-M Strength Start: 06/12/17 10:16 Freq: Status: Active Protocol: PT-OP-Q Treatments Start: 06/12/17 10:16 Freq: Status: Active Protocol: Document 07/23/17 10:30 GGD (Rec: 07/23/17 15:18 GGD [email or web address]) Cardio Equipment Recumbent Stepper (Sci-Fit) Duration (Minutes) 12 Resistance 3 Seat Position 15 Other Arms the last 2 minutes Gym Equipment Cable Column (Body Solid) Leg Extension Resistance 45# Reps/Time 8x3 Leg Curl Resistance 55# Reps/Time 8x3 Shuttle Recovery Unilateral Squats Details For strengthening for kneel to stand Resistance 50# Shuttle Recovery Platform Stable Reps/Time 8x2 Bilateral Squats Details Pt in squat position Resistance 100# Shuttle Recovery Platform Stable Reps/Time 10 x1 Therapeutic Exercises Standing Exercises 4 Standing Exercise Name Hip ext with T-Band around ankles. Side bilateral Reps/Minutes 10 x PT-OP-T Assessment and Plan Start: 06/12/17 10:16 Freq: Status: Active Protocol: Document 07/23/17 10:30 GGD (Rec: 07/23/17 15:18 GGD [email or web address]) Physical Therapy Assessment Assessment Summary Assessment Pt fatigued quickly with exerices. He need rest breaks. Pt improved with TUG from 14 secs to 12 sec without cane. Physical Therapy Plan Frequency and Duration Frequency of Treatment 2x/Week Duration of Treatment 4 weeks Plan of Care Start Date 06/03/17 Plan of Care End Date 08/02/17 Next Visit Focus/Plan Next Note Type Treatment Note Next Visit Plan progress strengthening and monitor fatigue.
--- NOTE | 2017-07-29 16:02 | PT.OTN ---
Current Diagnoses Other symptoms and signs involving the musculoskeletal system (07/29/17) Weakness (07/29/17) Physical Therapy Treatment Note PT-OP-A Visit Information Start: 06/12/17 10:16 Freq: Status: Active Protocol: Document 07/29/17 10:37 LRN (Rec: 07/29/17 11:09 LRN [id number]) Out-Patient Physical Therapy Visit Information Visit Information Visit Type Treatment Note Visit Note 06/20 after PN Visit Start Time 10:37 Visit Stop Time 11:25 Total Visit Minutes 43 Visit Number 22 Number of SURVEILLANCE OBSERVER Visits 0 Evaluation Information Evaluation Date 05/03/17 PT-OP-C Subjective Start: 06/12/17 10:16 Freq: Status: Active Protocol: Document 07/29/17 10:37 LRN (Rec: 07/29/17 11:09 LRN [id number]) OP-PT Subjective Patient Comments Patient Comments Feling good today. States he notices that he is standing straighter. PT-OP-E Functional Tests Start: 07/02/17 15:42 Freq: Status: Active Protocol: Document 07/23/17 10:30 GGD (Rec: 07/23/17 15:18 GGD [email or web address]) Functional Tests Timed Up and Go (TUG) Score 11.21 Comments with cane 12 secs without cane PT-OP-M Strength Start: 06/12/17 10:16 Freq: Status: Active Protocol: Document 07/01/17 09:07 LRN (Rec: 07/01/17 09:50 LRN [id number]) Hip Strength Hip Manual Muscle Testing Right Flexion (L2) 3- Fair- Extension (S1) 3- Fair- Abduction 3- Fair- Adduction 1 Trace External Rotation 3- Fair- Internal Rotation 4 Good Left Flexion (L2) 3 Fair Extension (S1) 2+ Poor+ Abduction 3- Fair- Adduction 1 Trace External Rotation 3- Fair- Internal Rotation 4 Good PT-OP-Q Treatments Start: 06/12/17 10:16 Freq: Status: Active Protocol: Document 07/29/17 10:37 LRN (Rec: 07/29/17 11:09 LRN [id number]) Cardio Equipment Recumbent Stepper (Sci-Fit) Duration (Minutes) 12 Resistance 3 Seat Position 15 Other Arms the last 2 minutes Gym Equipment Cable Column (Body Solid) Leg Extension Resistance 40# Reps/Time 10x3 Leg Curl Resistance 55# Reps/Time 10x3 Therapeutic Exercises Standing Exercises 4 Standing Exercise Name Hip ext with T-Band around ankles. Side bilateral Reps/Minutes 10 x 2 3 Standing Exercise Name With foot on 12 step: Hip flex lifts off step Reps/Minutes 10, 8x2 2 Standing Exercise Name Stepping foot up on 12 height step Side bilateral Reps/Minutes 10x3 Comments 12 step up with anterior hip stretch. Pt needed rests between bouts. Other Exercises 2 Other Exercise Name Kneel to stand Side bilateral Reps/Minutes 2 reps Comments Pt had difficulty getting up with R leg forward (kneeling on L knee) 1 Other Exercise Name Stretch to Iliacus f/b 10 buttock squeezes: in kneeling in parallel bars Side bilateral Reps/Minutes 2 reps Comments Hold 60 sec stretch, 2 sec PT-OP-T Assessment and Plan Start: 06/12/17 10:16 Freq: Status: Active Protocol: Document 07/29/17 10:37 LRN (Rec: 07/29/17 11:09 LRN [id number]) Physical Therapy Assessment Goals Seven Impairment Decreased endurance per 5TSTS of 20 secs with use of arms. [facility] Goal (LTG) Pt will be able to get up from chair without use of arm rests. LTG Duration 08/02/17. Six Impairment TUG Score 12-13 (20% to <40% impaired) [facility] Goal (LTG) Improve Balance: TUG Score: 11 or less (1% < 20% impaired). LTG Duration 08/02/17 Five Impairment Decreased LE strength Mcfp Goal (LTG) Pt will demonstrate improved LE strength by 1/2 grade to be able to get off the floor with use of chair for assist. LTG Duration 08/02/17 Four Impairment Thoracic weakness [facility]fp Goal (LTG) Pt will be able to improve core strength 1/2 grade to decrease his risk of falling. LTG Duration 08/02/17 Three Impairment Hips flexed 10 deg's in standing Short Term Goal (STG) Pt will be able to static stand without hip/knees flexed STG Duration 07/16/17 Two Impairment Decreased postural awareness of good sitting posture Short Term Goal (STG) PT will be able to self correct his sitting posture with cuing. 07/09/17: Pt is self correcting standing posture 50 % of the time STG Duration 07/16/17. One Impairment Lacks appropriate HEP School Photographs Detailer Goal (LTG) Pt independent with HEP/Self care. LTG Duration 08/02/17 Assessment Summary Assessment Pt degree of weakness is variable since his last cancer treatment. His progress is slow as expected. Standing posture is improved. Physical Therapy Plan Frequency and Duration Frequency of Treatment 2x/Week Duration of Treatment 4 weeks Plan of Care Start Date 06/03/17 Plan of Care End Date 08/02/17 Therapeutic Interventions Therapeutic Interventions Balance Training Home Exercise Program Neuromuscular Re-education Self-Care/Home Management Therapeutic Activities Therapeutic Exercises Next Visit Focus/Plan Next Note Type Progress Note Next Visit Plan Re-check, POC to .
--- NOTE | 2017-08-01 15:15 | PT.OTN ---
Current Diagnoses Other symptoms and signs involving the musculoskeletal system (08/01/17) Weakness (08/01/17) Physical Therapy Treatment Note PT-OP-A Visit Information Start: 06/12/17 10:16 Freq: Status: Active Protocol: Document 08/01/17 11:18 LRN (Rec: 08/01/17 13:14 LRN [id number]) Out-Patient Physical Therapy Visit Information Visit Information Visit Type Treatment Note Visit Note 07/21 after PN Visit Start Time 11:18 Visit Stop Time 12:03 Total Visit Minutes 45 Visit Number 23 Number of LEAN ENGINEER Visits 0 Evaluation Information Evaluation Date 05/03/17 PT-OP-C Subjective Start: 06/12/17 10:16 Freq: Status: Active Protocol: Document 08/01/17 11:18 LRN (Rec: 08/01/17 12:01 LRN [id number]) OP-PT Subjective Patient Comments Patient Comments States he only feels weakness just above the kneecaps. Feels funny to not have the weakness higher in the thighs. Patient Reported Progress Improving PT-OP-E Functional Tests Start: 07/02/17 15:42 Freq: Status: Active Protocol: Document 08/01/17 13:56 LRN (Rec: 08/01/17 14:01 LRN [id number]) Functional Tests Timed Up and Go (TUG) Score 12 Comments 12 secs without cane TUG Impairment Rating 20 to <40% Impaired (Score 12- 13) PT-OP-M Strength Start: 06/12/17 10:16 Freq: Status: Active Protocol: Document 07/01/17 09:07 LRN (Rec: 07/01/17 09:50 LRN [id number]) Hip Strength Hip Manual Muscle Testing Right Flexion (L2) 3- Fair- Extension (S1) 3- Fair- Abduction 3- Fair- Adduction 1 Trace External Rotation 3- Fair- Internal Rotation 4 Good Left Flexion (L2) 3 Fair Extension (S1) 2+ Poor+ Abduction 3- Fair- Adduction 1 Trace External Rotation 3- Fair- Internal Rotation 4 Good PT-OP-Q Treatments Start: 06/12/17 10:16 Freq: Status: Active Protocol: Document 08/01/17 11:18 LRN (Rec: 08/01/17 12:01 LRN [id number]) Cardio Equipment Recumbent Stepper (Sci-Fit) Duration (Minutes) 12 Resistance 3 Seat Position 15 Other Arms the last 2 minutes Gym Equipment Cable Column (Body Solid) Leg Extension Resistance 45#, 40# Reps/Time 10x2, 10x1 respectively Leg Curl Resistance 55# Reps/Time 10x3 Therapeutic Exercises Supine Exercises 1 Supine Exercise Name Pt doing as HEP. Standing Exercises 6 Standing Exercise Name Medial Quad strengthening: Shallow squat with T-Band resistance Side bilateral Resistance Lev 3 Reps/Minutes 10x2 Comments Extra time taken for proper body mechanics 3 Standing Exercise Name With foot on 12 step: Hip flex lifts off step Side bilateral Reps/Minutes 10 x 2 2 Standing Exercise Name Stepping foot up on 12 height step Side bilateral Reps/Minutes 10x3 Comments 12 step up with anterior hip stretch. Pt needed rests between bouts. Other Exercises 2 Other Exercise Name Kneel to stand - Held due to time constraint 1 Other Exercise Name Modified for standing today using rolling step stool f/b active hip ext x10 Side bilateral Reps/Minutes 1 Comments Hold 60 sec stretch PT-OP-T Assessment and Plan Start: 06/12/17 10:16 Freq: Status: Active Protocol: Document 08/01/17 11:18 LRN (Rec: 08/01/17 13:38 LRN [id number]) Physical Therapy Assessment Rehab Potential Rehabilitation Potential Good Impairments Impairments Balance Posture ROM Strength Other Impairments Self care: program needed. Other Concerns Fall Risk Yes per TUG Age Related Concerns Cardiac precautions, 81+ yrs old, bone & advanced prostate CA-currently receiving periodic chemotherapy treatments, bilateral foot neuropathy, R lower leg fracture with basilio 7-8 yrs ago. Goals Seven Impairment Decreased endurance per 5TSTS of 20 secs with use of arms. Senior Living Goal (LTG) Pt will be able to get up from chair without use of arm rests. LTG Duration 10/11/17 Six Impairment TUG Score 12-13 (20% to <40% impaired) Derrick Operator Goal (LTG) Improve Balance: TUG Score: 11 or less (1% < 20% impaired). LTG Duration 10/11/17 Five Impairment Decreased LE strength Derrick Operator Goal (LTG) Pt will demonstrate improved LE strength by 1/2 grade to be able to get off the floor with use of chair for assist. LTG Duration 10/11/17 Four Impairment Thoracic weakness Derrick Operator Goal (LTG) Pt will be able to improve core strength 1/2 grade to decrease his risk of falling. LTG Duration 10/11/17 Three Impairment Hips flexed 8 deg's in standing Senior Living Goal (LTG) Pt will be able to static stand without hip/knees flexed LTG Duration 10/11/17 Two Impairment Decreased postural awareness of good sitting posture Short Term Goal (STG) PT will be able to self correct his sitting posture with cuing. 07/09/17: Pt is self correcting standing posture 50 % of the time STG Duration 10/11/17 One Impairment Lacks appropriate HEP Senior Living Goal (LTG) Pt independent with HEP/Self care. LTG Duration 10/11/17 Assessment Summary Assessment Pt's posture is much improved. The pt has greater ease with sit to stand, but because of his tall stature he has some difficulty with standing from most chairs. He is able to stand upright with mild hip flexion. He is feeling weakness of medial quads because he has enough hip ext to achieve full knee ext with gait. Further medial quad strengthening is needed for stability with gait. His TUG score (12 sec's) has improved, showing increased stability with gait. The pt would benefit from continued physical therapy for LE/trunk strengthening, pt education for self care and therapeutic exercise to improve endurance . The pt hopes to increase endurance as he periodically undergoes treatment for his cancer causing loss of endurance; therefore I would recommend continuing therapy to achieve goals stated above. Physical Therapy Plan Frequency and Duration Frequency of Treatment 2x/Week Duration of Treatment 4 weeks Plan of Care Start Date 06/03/17 Plan of Care End Date 10/11/17 Therapeutic Interventions Therapeutic Interventions Balance Training Home Exercise Program Neuromuscular Re-education Self-Care/Home Management Therapeutic Activities Therapeutic Exercises Modalities Cold Pack/Ice Massage Hot Packs Next Visit Focus/Plan Next Note Type Treatment Note Next Visit Plan Continue to progress pt's LE/ trunk strength and posture for improved stability and safety with gait and to maximize function as the pt continues with his chemotherapy treatments. Recheck 5TSTS and hip/trunk strength.
--- NOTE | 2017-08-05 12:47 | PT.OTN ---
Current Diagnoses Other symptoms and signs involving the musculoskeletal system (08/05/17) Weakness (08/05/17) Physical Therapy Treatment Note PT-OP-A Visit Information Start: 06/12/17 10:16 Freq: Status: Active Protocol: Document 08/05/17 10:35 LRN (Rec: 08/05/17 11:17 LRN [id number]) Out-Patient Physical Therapy Visit Information Visit Information Visit Type Treatment Note Visit Note 08/20 after PN Visit Start Time 10:35 Visit Stop Time 11:22 Total Visit Minutes 47 Visit Number 24 Number of TOOL PLANER SET UP OPERATOR Visits 0 Evaluation Information Evaluation Date 05/03/17 PT-OP-C Subjective Start: 06/12/17 10:16 Freq: Status: Active Protocol: Document 08/05/17 10:35 LRN (Rec: 08/05/17 11:17 LRN [id number]) OP-PT Subjective Patient Comments Patient Comments States he's not too bad after having chemo 3 days ago. States he is surprised he is doing as well as he is. Patient Reported Progress Improving PT-OP-E Functional Tests Start: 07/02/17 15:42 Freq: Status: Active Protocol: Document 08/01/17 13:56 LRN (Rec: 08/01/17 14:01 LRN [id number]) Functional Tests Timed Up and Go (TUG) Score 12 Comments 12 secs without cane TUG Impairment Rating 20 to <40% Impaired (Score 12- 13) PT-OP-M Strength Start: 06/12/17 10:16 Freq: Status: Active Protocol: Document 07/01/17 09:07 LRN (Rec: 07/01/17 09:50 LRN [id number]) Hip Strength Hip Manual Muscle Testing Right Flexion (L2) 3- Fair- Extension (S1) 3- Fair- Abduction 3- Fair- Adduction 1 Trace External Rotation 3- Fair- Internal Rotation 4 Good Left Flexion (L2) 3 Fair Extension (S1) 2+ Poor+ Abduction 3- Fair- Adduction 1 Trace External Rotation 3- Fair- Internal Rotation 4 Good PT-OP-Q Treatments Start: 06/12/17 10:16 Freq: Status: Active Protocol: Document 08/05/17 10:35 LRN (Rec: 08/05/17 11:17 LRN [id number]) Cardio Equipment Recumbent Stepper (Sci-Fit) Duration (Minutes) 12 Resistance 3 Seat Position 16 Other Arms the last 2 minutes Gym Equipment Cable Column (Body Solid) Leg Extension Resistance 45#, 30# Reps/Time 8x2, x1 respectively Leg Curl Resistance 55# Reps/Time 8x3 Shuttle Recovery Bilateral Squats Details Pt in squat position Resistance 100# Shuttle Recovery Platform Stable Reps/Time 15 x2 Therapeutic Exercises Standing Exercises 6 Standing Exercise Name Medial Quad strengthening: Shallow squat with T-Band resistance Side bilateral Resistance Lev 3 Reps/Minutes 10x2 Comments Extra time taken for proper body mechanics 4 Standing Exercise Name Standing hip ext with lower leg on rolling stool between parallel bars. Side bilateral Reps/Minutes 10x each 3 Standing Exercise Name With foot on 12 step: Hip flex lifts off step Side bilateral Reps/Minutes 10 x 2 2 Standing Exercise Name Stepping foot up on 12 height step Side bilateral Reps/Minutes 10x3 Comments 12 step up with anterior hip stretch. Pt needed rests between bouts. Other Exercises 1 Other Exercise Name Modified for standing today using rolling step stool f/b active hip ext x10 Side bilateral Reps/Minutes 1 Comments Hold 60 sec stretch PT-OP-T Assessment and Plan Start: 06/12/17 10:16 Freq: Status: Active Protocol: Document 08/05/17 10:35 LRN (Rec: 08/05/17 11:17 LRN [id number]) Physical Therapy Assessment Goals Seven Impairment Decreased endurance per 5TSTS of 20 secs with use of arms. Private Branch Exchange Installer Goal (LTG) Pt will be able to get up from chair without use of arm rests. LTG Duration 10/11/17 Six Impairment TUG Score 12-13 (20% to <40% impaired) Private Branch Exchange Installer Goal (LTG) Improve Balance: TUG Score: 11 or less (1% < 20% impaired). LTG Duration 10/11/17 Four Impairment Thoracic weakness Nursing Home Goal (LTG) Pt will be able to improve core strength 1/2 grade to decrease his risk of falling. LTG Duration 10/11/17 Three Impairment Hips flexed 8 deg's in standing Private Branch Exchange Installer Goal (LTG) Pt will be able to static stand without hip/knees flexed LTG Duration 10/11/17 Two Impairment Decreased postural awareness of good sitting posture Short Term Goal (STG) PT will be able to self correct his sitting posture with cuing. 07/09/17: Pt is self correcting standing posture 50 % of the time STG Duration 10/11/17 One Impairment Lacks appropriate HEP Nursing Home Goal (LTG) Pt independent with HEP/Self care. LTG Duration 10/11/17 Progress Towards Goals Progress Comments Pt stands with 3 deg's hip flexion and no knee flexion. Assessment Summary Assessment Pt is able to stand almost upright, 3 deg's of hip flexion with no knee flexion. He is able to lift his R leg up onto a step without having to rotate outwards. Physical Therapy Plan Frequency and Duration Frequency of Treatment 2x/Week Duration of Treatment 4 weeks Plan of Care Start Date 06/03/17 Plan of Care End Date 10/11/17 Therapeutic Interventions Therapeutic Interventions Balance Training Home Exercise Program Neuromuscular Re-education Self-Care/Home Management Therapeutic Activities Therapeutic Exercises Modalities Cold Pack/Ice Massage Hot Packs Next Visit Focus/Plan Next Note Type Treatment Note Next Visit Plan Recheck 5TSTS and hip/trunk strength. Progress pt's LE/ trunk strength and posture with addition of core stab ex & balance shuttle, for improved stability and safety with gait and to maximize function as the pt continues with his chemotherapy treatments.
--- NOTE | 2017-08-08 12:23 | PT.OTN ---
Current Diagnoses Other symptoms and signs involving the musculoskeletal system (08/08/17) Weakness (08/08/17) Physical Therapy Treatment Note PT-OP-A Visit Information Start: 06/12/17 10:16 Freq: Status: Active Protocol: Document 08/08/17 11:19 LRN (Rec: 08/08/17 12:15 LRN [id number]) Out-Patient Physical Therapy Visit Information Visit Information Visit Type Treatment Note Visit Note 09/20 after PN Visit Start Time 11:19 Visit Stop Time 12:14 Total Visit Minutes 55 Visit Number 25 Number of LEAD SLOT TECHNICIAN Visits 0 Evaluation Information Evaluation Date 05/03/17 PT-OP-C Subjective Start: 06/12/17 10:16 Freq: Status: Active Protocol: Document 08/08/17 11:19 LRN (Rec: 08/08/17 12:15 LRN [id number]) OP-PT Subjective Patient Comments Patient Comments Had ache above the kneecaps after last session that lasted a day. Thought he wouldn't make it today, but feeling okay. PT-OP-E Functional Tests Start: 07/02/17 15:42 Freq: Status: Active Protocol: Document 08/01/17 13:56 LRN (Rec: 08/01/17 14:01 LRN [id number]) Functional Tests Timed Up and Go (TUG) Score 12 Comments 12 secs without cane TUG Impairment Rating 20 to <40% Impaired (Score 12- 13) PT-OP-M Strength Start: 06/12/17 10:16 Freq: Status: Active Protocol: Document 07/01/17 09:07 LRN (Rec: 07/01/17 09:50 LRN [id number]) Hip Strength Hip Manual Muscle Testing Right Flexion (L2) 3- Fair- Extension (S1) 3- Fair- Abduction 3- Fair- Adduction 1 Trace External Rotation 3- Fair- Internal Rotation 4 Good Left Flexion (L2) 3 Fair Extension (S1) 2+ Poor+ Abduction 3- Fair- Adduction 1 Trace External Rotation 3- Fair- Internal Rotation 4 Good PT-OP-Q Treatments Start: 06/12/17 10:16 Freq: Status: Active Protocol: Document 08/08/17 11:19 LRN (Rec: 08/08/17 12:15 LRN [id number]) Cardio Equipment Recumbent Stepper (Sci-Fit) Duration (Minutes) 12 Resistance 3 Seat Position 17 Other Arms the last 2 minutes Gym Equipment Cable Column (Body Solid) Leg Extension Resistance 45#, 40#, 40# Reps/Time 10x, 8x 2 respectivley Leg Curl Resistance 55# Reps/Time 8x3 Shuttle Recovery Unilateral Squats Details For strengthening for kneel to stand Resistance 37# R, 50#L Shuttle Recovery Platform Stable Reps/Time 10 Therapeutic Exercises Standing Exercises 6 Standing Exercise Name Medial Quad strengthening: Shallow squat with T-Band resistance Side bilateral Resistance Lev 3 Reps/Minutes 10x2 Comments Extra time taken for proper body mechanics Other Exercises 2 Other Exercise Name Kneel to stand Side bilateral Reps/Minutes 1 rep with rests Comments Pt had difficulty getting up with R leg forward (kneeling on L knee) 1 Other Exercise Name Modified for standing today using rolling step stool f/b active hip ext x10 Side bilateral Reps/Minutes 3 Comments Hold 60 sec stretch Self-Care/Home Management Treatment Education Patient Education Home Exercise Program Activities Self-Care/Home Management Activities Issued Lgt Green T-Band. I/S and reviewed Closed Kinetic Chain: Medial Quad strengthening. Pt felt he could remember the ex and feels he doesn't need handout. PT-OP-T Assessment and Plan Start: 06/12/17 10:16 Freq: Status: Active Protocol: Document 08/08/17 11:19 LRN (Rec: 08/08/17 12:15 LRN [id number]) Physical Therapy Assessment Goals Seven Impairment Decreased endurance per 5TSTS of 20 secs with use of arms. Wafer Batter Mixer Goal (LTG) Pt will be able to get up from chair without use of arm rests. LTG Duration 10/11/17 Six Impairment TUG Score 12-13 (20% to <40% impaired) Group Home Goal (LTG) Improve Balance: TUG Score: 11 or less (1% < 20% impaired). LTG Duration 10/11/17 Five Impairment Decreased LE strength Wafer Batter Mixer Goal (LTG) Pt will demonstrate improved LE strength by 1/2 grade to be able to get off the floor with use of chair for assist. LTG Duration 10/11/17 Four Impairment Thoracic weakness Group Home Goal (LTG) Pt will be able to improve core strength 1/2 grade to decrease his risk of falling. LTG Duration 10/11/17 Three Impairment Hips flexed 3 deg's in standing Group Home Goal (LTG) Pt will be able to static stand without hip/knees flexed LTG Duration 10/11/17 Two Impairment Decreased postural awareness of good sitting posture Short Term Goal (STG) Pt will be able to self correct his sitting posture with cuing. 07/09/17: Pt is self correcting standing posture 50 % of the time STG Duration 10/11/17 One Impairment Lacks appropriate HEP Wafer Batter Mixer Goal (LTG) Pt independent with HEP/Self care. LTG Duration 10/11/17 Progress Towards Goals Progress Comments Posture improved with standing and gait. Assessment Summary Assessment Pt had much difficulty coming up from kneeling due to weakness (see shuttle tolerance) and lack of weight transfer to back leg. Physical Therapy Plan Frequency and Duration Frequency of Treatment 2x/Week Duration of Treatment 4 weeks Plan of Care Start Date 06/03/17 Plan of Care End Date 10/11/17 Next Visit Focus/Plan Next Note Type Re-Evaluation Next Visit Plan Recheck vs re-eval: 5TSTS and hip/core strengthening. Progress pt's LE/trunk strength and posture with addition of core stab ex & balance shuttle, for improved stability and safety with gait and to maximize function as the pt continues with his chemotherapy treatments.
--- NOTE | 2017-08-13 12:53 | PT.OTN ---
Current Diagnoses Other symptoms and signs involving the musculoskeletal system (08/13/17) Weakness (08/13/17) Physical Therapy Treatment Note PT-OP-A Visit Information Start: 06/12/17 10:16 Freq: Status: Active Protocol: Document 08/13/17 09:45 AMB (Rec: 08/13/17 12:43 AMB [email or web address]) Out-Patient Physical Therapy Visit Information Visit Information Visit Type Treatment Note Visit Note G code 04/20 Visit Start Time 09:45 Visit Stop Time 10:30 Total Visit Minutes 45 Visit Number 26 Number of VALIDATION ARCHITECT Visits 0 Evaluation Information Evaluation Date 05/03/17 PT-OP-C Subjective Start: 06/12/17 10:16 Freq: Status: Active Protocol: Document 08/13/17 09:45 AMB (Rec: 08/13/17 12:43 AMB [id number]) OP-PT Subjective Patient Comments Patient Comments Pt states his legs are fatigued for the rest of the day after PT. PT-OP-E Functional Tests Start: 07/02/17 15:42 Freq: Status: Active Protocol: Document 08/01/17 13:56 LRN (Rec: 08/01/17 14:01 LRN [id number]) Functional Tests Timed Up and Go (TUG) Score 12 Comments 12 secs without cane TUG Impairment Rating 20 to <40% Impaired (Score 12- 13) PT-OP-M Strength Start: 06/12/17 10:16 Freq: Status: Active Protocol: Document 07/01/17 09:07 LRN (Rec: 07/01/17 09:50 LRN [id number]) Hip Strength Hip Manual Muscle Testing Right Flexion (L2) 3- Fair- Extension (S1) 3- Fair- Abduction 3- Fair- Adduction 1 Trace External Rotation 3- Fair- Internal Rotation 4 Good Left Flexion (L2) 3 Fair Extension (S1) 2+ Poor+ Abduction 3- Fair- Adduction 1 Trace External Rotation 3- Fair- Internal Rotation 4 Good PT-OP-Q Treatments Start: 06/12/17 10:16 Freq: Status: Active Protocol: Document 08/13/17 09:45 AMB (Rec: 08/13/17 10:19 AMB [id number]) Cardio Equipment Recumbent Stepper (Sci-Fit) Duration (Minutes) 12 Resistance 3 Seat Position 17 Other Arms the last 2 minutes Gym Equipment Cable Column (Body Solid) Leg Extension Resistance 45#, 40#, 40# Reps/Time 10x, 8x 2 respectivley Leg Curl Resistance 55# Reps/Time 8x3 Shuttle Recovery Unilateral Squats Details For strengthening for kneel to stand Resistance 37# R, 50#L Shuttle Recovery Platform Stable Reps/Time 2x10 Therapeutic Exercises Standing Exercises 7 Standing Exercise Name hip abd Resistance #3 Comments avoid knee hyper extension on stance leg 6 Standing Exercise Name Medial Quad strengthening: Shallow squat with T-Band resistance Side bilateral Resistance Lev 3 Reps/Minutes 10x2 Comments Extra time taken for proper body mechanics 4 Standing Exercise Name Standing hip ext with lower leg on rolling stool between parallel bars. Side bilateral Reps/Minutes 10x each 1 Standing Exercise Name sit to stand Reps/Minutes 10 Comments with UEs PT-OP-T Assessment and Plan Start: 06/12/17 10:16 Freq: Status: Active Protocol: Document 08/13/17 09:45 AMB (Rec: 08/13/17 12:52 AMB [id number]) Physical Therapy Assessment Assessment Summary Assessment 5x sit to stand was 30 seconds with using UEs. Quad strength remains limited. Physical Therapy Plan Frequency and Duration Frequency of Treatment 2x/Week Duration of Treatment 4 weeks Plan of Care Start Date 06/03/17 Plan of Care End Date 10/11/17 Therapeutic Interventions Therapeutic Interventions Balance Training Home Exercise Program Neuromuscular Re-education Self-Care/Home Management Therapeutic Activities Therapeutic Exercises Modalities Cold Pack/Ice Massage Hot Packs Next Visit Focus/Plan Next Note Type Treatment Note Next Visit Plan Progress hip/core stabilization, can try shuttle balance.
--- NOTE | 2017-08-22 13:03 | PT.OTN ---
Current Diagnoses Other symptoms and signs involving the musculoskeletal system (08/22/17) Weakness (08/22/17) Physical Therapy Treatment Note PT-OP-A Visit Information Start: 06/12/17 10:16 Freq: Status: Active Protocol: Document 08/22/17 11:30 LRN (Rec: 08/22/17 12:29 LRN [id number]) Out-Patient Physical Therapy Visit Information Visit Information Visit Type Treatment Note Visit Note 05/21 after G-Codes Visit Start Time 11:30 Visit Stop Time 12:15 Total Visit Minutes 45 Visit Number 27 Number of BILLING SUPERVISOR Visits 0 Evaluation Information Evaluation Date 05/03/17 PT-OP-C Subjective Start: 06/12/17 10:16 Freq: Status: Active Protocol: Document 08/22/17 11:30 LRN (Rec: 08/22/17 12:29 LRN [id number]) OP-PT Subjective Patient Comments Patient Comments Using a walker at home,can really walk a lot. Walking 10 minutes per day, 3x/day. [place]. [place] and slid off when trying to stand up. Having another chemo treatment tomorrow. PT-OP-E Functional Tests Start: 07/02/17 15:42 Freq: Status: Active Protocol: Document 08/22/17 11:30 LRN (Rec: 08/22/17 12:29 LRN [id number]) Functional Tests Five Times Sit to Stand Test Score 13 sec's Comments With cane. PT-OP-M Strength Start: 06/12/17 10:16 Freq: Status: Active Protocol: Document 07/01/17 09:07 LRN (Rec: 07/01/17 09:50 LRN [id number]) Hip Strength Hip Manual Muscle Testing Right Flexion (L2) 3- Fair- Extension (S1) 3- Fair- Abduction 3- Fair- Adduction 1 Trace External Rotation 3- Fair- Internal Rotation 4 Good Left Flexion (L2) 3 Fair Extension (S1) 2+ Poor+ Abduction 3- Fair- Adduction 1 Trace External Rotation 3- Fair- Internal Rotation 4 Good PT-OP-Q Treatments Start: 06/12/17 10:16 Freq: Status: Active Protocol: Document 08/22/17 11:30 LRN (Rec: 08/22/17 12:29 LRN [id number]) Cardio Equipment Recumbent Stepper (Sci-Fit) Duration (Minutes) 12 Resistance 3 Seat Position 17 Other Arms the last 2 minutes Gym Equipment Cable Column (Body Solid) Leg Extension Resistance 45#, 40# Reps/Time 10x1, 10x2 respectivley Leg Curl Resistance 50# Reps/Time 10x3 Shuttle Balance 2 Details Wgt shift fwd/bkwd in split stance. Reps/Duration 6' Comments Bilateral, physical cuing needed for pivoting at hips. Minimal pivoting noted 1 Details Weight shifts fwd/bkwd & side to side Reps/Duration 8' Comments v. and physical cues for posture Therapeutic Exercises Standing Exercises 3 Standing Exercise Name With foot on 12 step: Hip flex lifts off step Side bilateral Reps/Minutes 10 x 2 Comments Pt Asst needed 2 Standing Exercise Name Stepping foot up on 12 height step Side bilateral Reps/Minutes 10x3 Comments 12 step up with anterior hip stretch. Pt needed rests between bouts. Gait Training Gait Activity 1 Description 10' Walk for safety and speed Device Used cane Distance/Duration 1' Treatment Focus Safe speed of gait Comments 13 sec's. Tested after Quad/ Hamstring strengthening ex's. PT-OP-T Assessment and Plan Start: 06/12/17 10:16 Freq: Status: Active Protocol: Document 08/22/17 11:30 LRN (Rec: 08/22/17 12:29 LRN [id number]) Physical Therapy Assessment Goals Seven Impairment Decreased endurance per 5TSTS of 20 secs with use of arms. Federal Agent Goal (LTG) Pt will be able to get up from chair without use of arm rests. LTG Duration 10/11/17 Six Impairment TUG Score 12-13 (20% to <40% impaired) Nursing Home Goal (LTG) Improve Balance: TUG Score: 11 or less (1% < 20% impaired). LTG Duration 10/11/17 Five Impairment Decreased LE strength Federal Agent Goal (LTG) Pt will demonstrate improved LE strength by 1/2 grade to be able to get off the floor with use of chair for assist. LTG Duration 10/11/17 Four Impairment Thoracic weakness Nursing Home Goal (LTG) Pt will be able to improve core strength 1/2 grade to decrease his risk of falling. LTG Duration 10/11/17 Three Impairment Hips flexed 3 deg's in standing Federal Agent Goal (LTG) Pt will be able to static stand without hip/knees flexed LTG Duration 10/11/17 Two Impairment Decreased postural awareness of good sitting posture Short Term Goal (STG) Pt will be able to self correct his sitting posture with cuing. 07/09/17: Pt is self correcting standing posture 50 % of the time STG Duration 08/22/17: Goal met. One Impairment Lacks appropriate HEP Federal Agent Goal (LTG) Pt independent with HEP/Self care. LTG Duration 10/11/17 Progress Towards Goals Progress Comments Pt showing good postural awareness. Needs v. cuing in sitting but is able to self correct with cuing. Assessment Summary Assessment TUG test was 14 sec's. He has not been able to attend therapy due to scheduling difficulties; therefore pt shows some decr in LE strength . He was unable to lift his R leg up on the 12 step without assist. Pt to have chemo tomorrow; therefore its expected that his strength/ endurance will be limited post -chemo. Physical Therapy Plan Frequency and Duration Frequency of Treatment 2x/Week Duration of Treatment 4 weeks Plan of Care Start Date 06/03/17 Plan of Care End Date 10/11/17 Next Visit Focus/Plan Next Note Type Treatment Note Next Visit Plan Recheck 5TSTS & TUG before exercise. (NOTE: pt having chemo 08/23/17) hip/trunk strength. Progress pt's LE/ trunk strength and posture with addition of core stab ex, for improved stability and safety with gait and to maximize function as the pt continues with his chemotherapy treatments.
--- NOTE | 2017-08-28 08:33 | PT.OTN ---
Current Diagnoses Other symptoms and signs involving the musculoskeletal system (08/27/17) Weakness (08/27/17) Physical Therapy Treatment Note PT-OP-A Visit Information Start: 06/12/17 10:16 Freq: Status: Active Protocol: Document 08/27/17 09:00 LRN (Rec: 08/27/17 09:58 LRN [id number]) Out-Patient Physical Therapy Visit Information Visit Information Visit Type Treatment Note Visit Note 06/20 after G-Codes Visit Start Time 09:00 Visit Stop Time 09:52 Total Visit Minutes 52 Visit Number 28 Number of ECMO SPECIALIST Visits 0 Evaluation Information Evaluation Date 05/03/17 PT-OP-C Subjective Start: 06/12/17 10:16 Freq: Status: Active Protocol: Document 08/27/17 09:00 LRN (Rec: 08/27/17 09:58 LRN [id number]) OP-PT Subjective Patient Comments Patient Comments Had chemo 4 days ago, and it was really bad, could hardly move. Better today than yesterday. Doing 3 ten minute walks. PT-OP-E Functional Tests Start: 07/02/17 15:42 Freq: Status: Active Protocol: Document 08/22/17 11:30 LRN (Rec: 08/22/17 12:29 LRN [id number]) Functional Tests Five Times Sit to Stand Test Score 13 sec's Comments With cane. PT-OP-M Strength Start: 06/12/17 10:16 Freq: Status: Active Protocol: Document 08/27/17 09:00 LRN (Rec: 08/28/17 08:29 LRN [id number]) Hip Strength Hip Manual Muscle Testing Right Flexion (L2) 3- Fair- Extension (S1) 3- Fair- Abduction 3- Fair- Adduction 1 Trace Left Flexion (L2) 4 Good Extension (S1) 3- Fair- Abduction 3- Fair- Adduction 1 Trace PT-OP-Q Treatments Start: 06/12/17 10:16 Freq: Status: Active Protocol: Document 08/27/17 09:00 LRN (Rec: 08/27/17 09:58 LRN [id number]) Cardio Equipment Recumbent Stepper (Sci-Fit) Duration (Minutes) 12 Resistance 3 Seat Position 17 Other Arms the last 2 minutes Gym Equipment Cable Column (Body Solid) Leg Extension Resistance 40# Reps/Time 10x3 Leg Curl Resistance 50# Reps/Time 10x3 Shuttle Recovery Unilateral Squats Details For strengthening for kneel to stand Resistance 50# Shuttle Recovery Platform Stable Reps/Time 10x3, bilateral. Rest between bouts Bilateral Squats Details Pt in squat position Resistance 100# Shuttle Recovery Platform Stable Reps/Time 15 x2 Therapeutic Exercises Sidelying Exercises 2 Sidelying Exercise Name Clamshell Side bilateral Reps/Minutes 6' Comments Also MMT 1 Sidelying Exercise Name Hip AB Side bilateral Reps/Minutes 6' Comments Also MMT Standing Exercises 1 Standing Exercise Name sit to stand Reps/Minutes 10 Comments with UEs PT-OP-T Assessment and Plan Start: 06/12/17 10:16 Freq: Status: Active Protocol: Document 08/27/17 09:00 LRN (Rec: 08/27/17 09:58 LRN [id number]) Physical Therapy Assessment Rehab Potential Rehabilitation Potential Good Impairments Impairments Balance Posture ROM Strength Other Impairments Self care: program needed. Other Concerns Fall Risk Yes Age Related Concerns Cardiac precautions, 81+ yrs old, bone & advanced prostate CA-currently receiving periodic chemotherapy treatments, bilateral foot neuropathy, R lower leg fracture with basilio 7-8 yrs ago. Barriers to Rehabilitation Currently undergoing cancer treatments in conjunction with therapy. Goals Seven Impairment Decreased endurance per 5TSTS of 20 secs with use of arms. Melt House Supervisor Goal (LTG) Pt will be able to get up from chair without use of arm rests. LTG Duration 10/11/17 Six Impairment TUG Score 12-13 (20% to <40% impaired) Half-Way Goal (LTG) Improve Balance: TUG Score: 11 or less (1% < 20% impaired). LTG Duration 10/11/17 Five Impairment Decreased LE strength Half-Way Goal (LTG) Pt will demonstrate improved LE strength by 1/2 grade to be able to get off the floor with use of chair for assist. LTG Duration 10/11/17 Four Impairment Thoracic weakness Melt House Supervisor Goal (LTG) Pt will be able to improve core strength 1/2 grade to decrease his risk of falling. LTG Duration 10/11/17 Three Impairment Hips flexed 3 deg's in standing Half-Way Goal (LTG) Pt will be able to static stand without hip/knees flexed LTG Duration 08/27/17: Goal Met Two Impairment Decreased postural awareness of good sitting posture STG Duration 08/22/17: Goal met. One Impairment Lacks appropriate HEP Half-Way Goal (LTG) Pt independent with HEP/Self care. LTG Duration 10/11/17 Progress Towards Goals Progress Towards Goals Slow Progress due to Medical Issues Progress Comments Goal #2 Met for upright standing posture. Assessment Summary Assessment Pt needed more frequent rests due to low endurance following his most recent chemo treatment. Posture is normal in stance upon v. cuing; therefore Goal #3 has been met . Physical Therapy Plan Frequency and Duration Frequency of Treatment 2x/Week Duration of Treatment 4 weeks Plan of Care Start Date 06/03/17 Plan of Care End Date 10/11/17 Therapeutic Interventions Therapeutic Interventions Balance Training Home Exercise Program Neuromuscular Re-education Self-Care/Home Management Therapeutic Activities Therapeutic Exercises Modalities Cold Pack/Ice Massage Hot Packs Next Visit Focus/Plan Next Visit Plan Recheck 5TSTS & TUG before strengthening exercise. Check hip ER/IR strength. Review hip ex's in sup/sidelie. Continue to improve LE strength to improve ability to get up/down from floor. Add and progress core stab ex, for improved stability and safety with gait and to maximize function as the pt continues with his chemotherapy treatments.
--- NOTE | 2017-08-29 12:26 | PT.OTN ---
Current Diagnoses Other symptoms and signs involving the musculoskeletal system (08/29/17) Weakness (08/29/17) Physical Therapy Treatment Note PT-OP-A Visit Information Start: 06/12/17 10:16 Freq: Status: Active Protocol: Document 08/29/17 11:21 LRN (Rec: 08/29/17 12:02 LRN [id number]) Out-Patient Physical Therapy Visit Information Visit Information Visit Type Treatment Note Visit Note 07/21 after G-Codes Visit Start Time 11:21 Visit Stop Time 12:02 Total Visit Minutes 41 Visit Number 29 Number of INVESTOR RELATIONS DIRECTOR Visits 0 PT-OP-C Subjective Start: 06/12/17 10:16 Freq: Status: Active Protocol: Document 08/29/17 11:21 LRN (Rec: 08/29/17 12:02 LRN [id number]) OP-PT Subjective Patient Comments Patient Comments Best day he's ever had was yesterday. Was able to walk and felt stable. 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 PT-OP-E Functional Tests Start: 07/02/17 15:42 Freq: Status: Active Protocol: Document 08/22/17 11:30 LRN (Rec: 08/22/17 12:29 LRN [id number]) Functional Tests Five Times Sit to Stand Test Score 13 sec's Comments With cane. PT-OP-M Strength Start: 06/12/17 10:16 Freq: Status: Active Protocol: Document 08/27/17 09:00 LRN (Rec: 08/28/17 08:29 LRN [id number]) Hip Strength Hip Manual Muscle Testing Right Flexion (L2) 3- Fair- Extension (S1) 3- Fair- Abduction 3- Fair- Adduction 1 Trace Left Flexion (L2) 4 Good Extension (S1) 3- Fair- Abduction 3- Fair- Adduction 1 Trace PT-OP-Q Treatments Start: 06/12/17 10:16 Freq: Status: Active Protocol: Document 08/29/17 11:21 LRN (Rec: 08/29/17 12:02 LRN [id number]) Cardio Equipment Recumbent Stepper (Sci-Fit) Duration (Minutes) 12 Resistance 3 Seat Position 17 Other Arms the last 2 minutes Gym Equipment Cable Column (Body Solid) Leg Extension Resistance 40# Reps/Time 10x3 Leg Curl Resistance 50# Reps/Time 10x3 Therapeutic Exercises Standing Exercises 3 Standing Exercise Name With foot on 12 step: Hip flex lifts off step Side bilateral Reps/Minutes 10 x 2 Comments Pt Asst needed 2 Standing Exercise Name Stepping foot up on 12 height step Side bilateral Reps/Minutes 10x3 Comments 12 step up with anterior hip stretch. Pt needed rests between bouts. 1 Standing Exercise Name sit to stand Reps/Minutes 20' Comments with UEs. Without UE's w/ assist Gait Training Gait Activity 1 Description Fast and safe Gait for TUG Test PT-OP-T Assessment and Plan Start: 06/12/17 10:16 Freq: Status: Active Protocol: Document 08/29/17 11:21 LRN (Rec: 08/29/17 12:14 LRN [id number]) Physical Therapy Assessment Goals Seven Impairment Decreased endurance per 5TSTS of 20 secs with use of arms. Penitentiary Goal (LTG) Pt will be able to get up from chair using arms to assist in less than 20 sec's. LTG Duration 10/11/17 Six Impairment TUG Score 12-13 (20% to <40% impaired) Penitentiary Goal (LTG) Improve Balance: TUG Score: 11 or less (1% < 20% impaired). LTG Duration 10/11/17. 08/29/17 TUG 11.5 sec's Five Impairment Decreased LE strength Forms Designer Goal (LTG) Pt will demonstrate improved LE strength by 1/2 grade to be able to get off the floor with use of chair for assist. LTG Duration 10/11/17 Four Impairment Thoracic weakness Forms Designer Goal (LTG) Pt will be able to improve core strength 1/2 grade to decrease his risk of falling. LTG Duration 10/11/17 Three Impairment Hips flexed 3 deg's in standing Penitentiary Goal (LTG) Pt will be able to static stand without hip/knees flexed LTG Duration Goal Met Two Impairment Decreased postural awareness of good sitting posture Short Term Goal (STG) Pt will be able to self correct his sitting posture with cuing. 07/09/17: Pt is self correcting standing posture 50 % of the time STG Duration Goal met. One Impairment Lacks appropriate HEP Forms Designer Goal (LTG) Pt independent with HEP/Self care. LTG Duration 08/31/18 Progress Towards Goals Progress Comments TUG almost normal for his age. No improvement with endurance as expected following chemo treatment. Assessment Summary Assessment TUG is 11.53 sec's. His endurance is poor with 5TSTS is worse at 34 sec's. Pt was able to step up with the L leg x4 without assist. Physical Therapy Plan Frequency and Duration Frequency of Treatment 2x/Week Duration of Treatment 4 weeks Plan of Care Start Date 06/03/17 Plan of Care End Date 10/11/17 Next Visit Focus/Plan Next Note Type Treatment Note Next Visit Plan Check hip ER/IR strength. Review hip ex's in sup/sidelie . Continue to improve LE strength to improve ability to get up/down from floor. Add and progress core stab ex, for improved stability and safety with gait and to maximize function as the pt continues with his chemotherapy treatments.
--- NOTE | 2017-09-03 15:14 | PT.OTN ---
Current Diagnoses Other symptoms and signs involving the musculoskeletal system (09/03/17) Weakness (09/03/17) Physical Therapy Treatment Note PT-OP-A Visit Information Start: 06/12/17 10:16 Freq: Status: Active Protocol: Document 09/03/17 10:31 LRN (Rec: 09/03/17 15:13 LRN [id number]) Out-Patient Physical Therapy Visit Information Visit Information Visit Type Treatment Note Visit Note 08/20 after G-Codes Visit Start Time 10:31 Visit Stop Time 11:26 Total Visit Minutes 55 Visit Number 30 Number of DRILL PRESS SET UP OPERATOR Visits 0 Evaluation Information Evaluation Date 05/03/17 PT-OP-C Subjective Start: 06/12/17 10:16 Freq: Status: Active Protocol: Document 09/03/17 10:31 LRN (Rec: 09/03/17 11:15 LRN [id number]) OP-PT Subjective Patient Comments Patient Comments States he was diagnosed with Shingles 3 days ago, is on medicine. No blistering and weeping. PT-OP-E Functional Tests Start: 07/02/17 15:42 Freq: Status: Active Protocol: Document 08/22/17 11:30 LRN (Rec: 08/22/17 12:29 LRN [id number]) Functional Tests Five Times Sit to Stand Test Score 13 sec's Comments With cane. PT-OP-M Strength Start: 06/12/17 10:16 Freq: Status: Active Protocol: Document 09/03/17 10:31 LRN (Rec: 09/03/17 11:15 LRN [id number]) Hip Strength Hip Manual Muscle Testing Right External Rotation 3+ Fair+ Internal Rotation 3+ Fair+ Left External Rotation 3+ Fair+ Internal Rotation 3+ Fair+ PT-OP-Q Treatments Start: 06/12/17 10:16 Freq: Status: Active Protocol: Document 09/03/17 10:31 LRN (Rec: 09/03/17 11:15 LRN [id number]) Cardio Equipment Recumbent Stepper (Sci-Fit) Duration (Minutes) 12 Resistance 3 Seat Position 17 Other Arms the last 2 minutes Gym Equipment Cable Column (Body Solid) Leg Extension Resistance 45#, 40# Reps/Time 10x1, 10x2 respectively Leg Curl Resistance 55# Reps/Time 10x3 Therapeutic Exercises Sidelying Exercises 3 Sidelying Exercise Name Hip IR Side bilateral Reps/Minutes 10x 3 2 Sidelying Exercise Name Clamshell Side bilateral Reps/Minutes 6' Standing Exercises 3 Standing Exercise Name With foot on 12 step: Hip flex lifts off step Side bilateral Reps/Minutes 10 x 3 Comments Pt Asst needed 2 Standing Exercise Name Stepping foot up on 12 height step Side bilateral Reps/Minutes 10x3 Comments 12 step up with anterior hip stretch. Pt needed rests between bouts. PT-OP-T Assessment and Plan Start: 06/12/17 10:16 Freq: Status: Active Protocol: Document 09/03/17 10:31 LRN (Rec: 09/03/17 11:15 LRN [id number]) Physical Therapy Assessment Goals Seven Impairment Decreased endurance per 5TSTS of 20 secs with use of arms. Hydraulic Press Operator Goal (LTG) Pt will be able to get up from chair 5x using arms to assist in less than 20 sec's. LTG Duration 10/11/17 Six Impairment TUG Score 12-13 (20% to <40% impaired) Hydraulic Press Operator Goal (LTG) Improve Balance: TUG Score: 11 or less (1% < 20% impaired). LTG Duration 10/11/17. 08/29/17 TUG 11.5 sec's Five Impairment Decreased LE strength Assisted Goal (LTG) Pt will demonstrate improved LE strength by 1/2 grade to be able to get off the floor with use of chair for assist. LTG Duration 10/11/17 Four Impairment Thoracic weakness Assisted Goal (LTG) Pt will be able to improve core strength 1/2 grade to decrease his risk of falling. LTG Duration 10/11/17 One Impairment Lacks appropriate HEP Hydraulic Press Operator Goal (LTG) Pt independent with HEP/Self care. LTG Duration 10/11/17 Assessment Summary Assessment Pt reportedly with shingles, not blistered or pussing, on medications; therefore non- contagious. Pt able to lift L leg onto 12 step x 8 independently. Not able to lift on R LE. Physical Therapy Plan Frequency and Duration Frequency of Treatment 2x/Week Duration of Treatment 4 weeks Plan of Care Start Date 06/03/17 Plan of Care End Date 10/11/17 Therapeutic Interventions Therapeutic Interventions Balance Training Home Exercise Program Neuromuscular Re-education Self-Care/Home Management Therapeutic Activities Therapeutic Exercises Modalities Cold Pack/Ice Massage Hot Packs Next Visit Focus/Plan Next Note Type Treatment Note Next Visit Plan Check status of Shingles. Review hip ex's in sup/sidelie . Continue to improve LE strength to improve ability to get up/down from floor. Add and progress core stab ex, for improved stability and safety with gait and to maximize function as the pt continues with his chemotherapy treatments.
--- NOTE | 2017-09-06 17:53 | PT.OTN ---
Current Diagnoses Other symptoms and signs involving the musculoskeletal system (09/06/17) Weakness (09/06/17) Physical Therapy Treatment Note PT-OP-A Visit Information Start: 06/12/17 10:16 Freq: Status: Active Protocol: Document 09/06/17 09:10 LRN (Rec: 09/06/17 09:47 LRN [id number]) Out-Patient Physical Therapy Visit Information Visit Information Visit Type Treatment Note Visit Note 09/20 after G-Codes Visit Start Time 09:10 Visit Stop Time 09:52 Total Visit Minutes 42 Visit Number 31 Number of VINEYARD SUPERVISOR Visits 0 Evaluation Information Evaluation Date 05/03/17 PT-OP-C Subjective Start: 06/12/17 10:16 Freq: Status: Active Protocol: Document 09/06/17 09:10 LRN (Rec: 09/06/17 09:47 LRN [id number]) OP-PT Subjective Patient Comments Patient Comments Feeling weaker today. Next Sat will do another chemo treatment. PT-OP-E Functional Tests Start: 07/02/17 15:42 Freq: Status: Active Protocol: Document 08/22/17 11:30 LRN (Rec: 08/22/17 12:29 LRN [id number]) Functional Tests Five Times Sit to Stand Test Score 13 sec's Comments With cane. PT-OP-M Strength Start: 06/12/17 10:16 Freq: Status: Active Protocol: Document 09/03/17 10:31 LRN (Rec: 09/03/17 11:15 LRN [id number]) Hip Strength Hip Manual Muscle Testing Right External Rotation 3+ Fair+ Internal Rotation 3+ Fair+ Left External Rotation 3+ Fair+ Internal Rotation 3+ Fair+ PT-OP-Q Treatments Start: 06/12/17 10:16 Freq: Status: Active Protocol: Document 09/06/17 09:10 LRN (Rec: 09/06/17 09:47 LRN [id number]) Cardio Equipment Recumbent Stepper (Sci-Fit) Duration (Minutes) 12 Resistance 3 Seat Position 17 Other Arms the last 2 minutes Gym Equipment Cable Column (Body Solid) Leg Extension Resistance 45# Reps/Time 10x3 Leg Curl Resistance 55# Reps/Time 10x3 Therapeutic Exercises Standing Exercises 3 Standing Exercise Name With foot on 12 step: Hip flex lifts off step Side bilateral Reps/Minutes 10 x 3 Comments Pt Asst needed 2 Standing Exercise Name Stepping foot up on 12 height step Side bilateral Reps/Minutes 10x3 Comments 12 step up with anterior hip stretch. Pt needed rests between bouts. Neuro Re-Education Treatment Balance Activities 2 Details BOSU Ball Reps/Duration 8' Comments Balancing PT-OP-T Assessment and Plan Start: 06/12/17 10:16 Freq: Status: Active Protocol: Document 09/06/17 09:10 LRN (Rec: 09/06/17 09:47 LRN [id number]) Physical Therapy Assessment Impairments Impairments Balance Posture ROM Strength Other Impairments Self care: program needed. Other Concerns Fall Risk Yes Age Related Concerns Cardiac precautions, 81+ yrs old, bone & advanced prostate CA-currently receiving periodic chemotherapy treatments, bilateral foot neuropathy, R lower leg fracture with basilio 7-8 yrs ago. Barriers to Rehabilitation Currently undergoing cancer treatments in conjunction with therapy. Goals Seven Impairment Decreased endurance per 5TSTS of 20 secs with use of arms. Brine Maker Goal (LTG) Pt will be able to get up from chair 5x using arms to assist in less than 20 sec's. LTG Duration 10/11/17 Six Impairment TUG Score 12-13 (20% to <40% impaired) Brine Maker Goal (LTG) Improve Balance: TUG Score: 11 or less (1% < 20% impaired). LTG Duration 10/11/17. 08/29/17 TUG 11.5 sec's Five Impairment Decreased LE strength Long-Term Goal (LTG) Pt will demonstrate improved LE strength by 1/2 grade to be able to get off the floor with use of chair for assist. LTG Duration 10/11/17 Four Impairment Thoracic weakness Brine Maker Goal (LTG) Pt will be able to improve core strength 1/2 grade to decrease his risk of falling. LTG Duration 10/11/17 One Impairment Lacks appropriate HEP Brine Maker Goal (LTG) Pt independent with HEP/Self care. LTG Duration 10/11/17 Progress Towards Goals Progress Towards Goals Slow Progress due to Medical Issues Assessment Summary Assessment Pt able to lift the R leg up on step x 1. He was active this AM and feeling more tired during therapy. Pt progress is very slow due to complications with his other medical treatments (chemo). Pt reports no blistering from shingles. Physical Therapy Plan Next Visit Focus/Plan Next Note Type Treatment Note Next Visit Plan Monitor status of Shingles and upright posturing. Review hip ex's in sup/sidelie. Continue to improve LE strength to improve ability to get up/down from floor. Add and progress core stab ex, for improved stability and safety with gait and to maximize function as the pt continues with his chemotherapy treatments.
--- NOTE | 2017-09-10 13:07 | PT.OTN ---
Current Diagnoses Other symptoms and signs involving the musculoskeletal system (09/10/17) Weakness (09/10/17) Physical Therapy Treatment Note PT-OP-A Visit Information Start: 06/12/17 10:16 Freq: Status: Active Protocol: Document 09/10/17 09:45 EA (Rec: 09/10/17 09:46 EA [id number]) Out-Patient Physical Therapy Visit Information Visit Information Visit Type Treatment Note Visit Note 10/21 after G-Codes Visit Start Time 09:10 Visit Stop Time 09:52 Total Visit Minutes 42 Visit Number 32 Number of AVIONICS ELECTRONICS TECHNICIAN Visits 0 PT-OP-C Subjective Start: 06/12/17 10:16 Freq: Status: Active Protocol: Document 09/10/17 09:08 EA (Rec: 09/10/17 09:45 EA [id number]) OP-PT Subjective Patient Comments Patient Comments Patient reports heat environment makes feel body weak more; states unable to perform sone of the HEP due to chemoe side effects and heat. PT-OP-E Functional Tests Start: 07/02/17 15:42 Freq: Status: Active Protocol: Document 08/22/17 11:30 LRN (Rec: 08/22/17 12:29 LRN [id number]) Functional Tests Five Times Sit to Stand Test Score 13 sec's Comments With cane. PT-OP-M Strength Start: 06/12/17 10:16 Freq: Status: Active Protocol: Document 09/03/17 10:31 LRN (Rec: 09/03/17 11:15 LRN [id number]) Hip Strength Hip Manual Muscle Testing Right External Rotation 3+ Fair+ Internal Rotation 3+ Fair+ Left External Rotation 3+ Fair+ Internal Rotation 3+ Fair+ PT-OP-Q Treatments Start: 06/12/17 10:16 Freq: Status: Active Protocol: Document 09/10/17 09:08 EA (Rec: 09/10/17 09:45 EA [id number]) Cardio Equipment Recumbent Stepper (Sci-Fit) Duration (Minutes) 12 Resistance 3 Seat Position 17 Other Arms the last 2 minutes Gym Equipment Cable Column (Body Solid) Leg Extension Resistance 45# Reps/Time 10x3 Leg Curl Resistance 55# Reps/Time 10x3 Shuttle Recovery Unilateral Squats Resistance 50 lbs Reps/Time x 12 x 2 Bilateral Squats Details Pt in squat position with ball in bet knees Resistance 100# Shuttle Recovery Platform Stable Reps/Time 12x2 Therapeutic Exercises Sidelying Exercises 3 Sidelying Exercise Name Hip IR Side bilateral Reps/Minutes 10x 3 2 Sidelying Exercise Name Clamshell Side bilateral Reps/Minutes 6' Standing Exercises 3 Standing Exercise Name With foot on 12 step: Hip flex lifts off step Side bilateral Reps/Minutes 10 x 3 Comments Pt Asst needed 2 Standing Exercise Name Stepping foot up on 12 height step Side bilateral Reps/Minutes 10x3 Comments 12 step up with anterior hip stretch. Pt needed rests between bouts. 1 Standing Exercise Name sit to stand Reps/Minutes 20' Comments with UEs. Without UE's w/ assist Neuro Re-Education Treatment Balance Activities 2 Details BOSU Ball Reps/Duration 8' Comments Balancing PT-OP-T Assessment and Plan Start: 06/12/17 10:16 Freq: Status: Active Protocol: Document 09/10/17 09:08 TRENA (Rec: 09/10/17 09:45 EA [id number]) Physical Therapy Assessment Assessment Summary Assessment Tolerated tretament well. Physical Therapy Plan Next Visit Focus/Plan Next Note Type Treatment Note Next Visit Plan Cont with current program.
--- NOTE | 2017-09-16 16:46 | PT.OTN ---
Current Diagnoses Other symptoms and signs involving the musculoskeletal system (09/16/17) Weakness (09/16/17) Physical Therapy Treatment Note PT-OP-A Visit Information Start: 06/12/17 10:16 Freq: Status: Active Protocol: Document 09/16/17 09:50 LRN (Rec: 09/16/17 10:34 LRN [id number]) Out-Patient Physical Therapy Visit Information Visit Information Visit Type Progress Note Visit Note 11/20 after G-Codes Visit Start Time 09:50 Visit Stop Time 10:42 Total Visit Minutes 52 Visit Number 33 Number of CRUSHER SCREEN REPAIRER Visits 0 PT-OP-C Subjective Start: 06/12/17 10:16 Freq: Status: Active Protocol: Document 09/16/17 09:50 LRN (Rec: 09/16/17 10:34 LRN [id number]) OP-PT Subjective Patient Comments Patient Comments Feeling a lot better than he has been. Did not do chemo 3 days ago because he had caught a cold and because he is still on meds for his shingles . Did 1/2 of normal walk and been doing a little exercising at home. Saw Cancer doctor 3 days ago and was told that some ex's for his shoulder might help him. Patient Questionnaires ABC- Activity Specific Balance Confidence Scale ABC Score 62.5 ABC Functional Impairment 20 to <40% Impaired (Score 61- 80) PT-OP-E Functional Tests Start: 07/02/17 15:42 Freq: Status: Active Protocol: Document 09/16/17 09:50 LRN (Rec: 09/16/17 16:08 LRN [id number]) Functional Tests Five Times Sit to Stand Test Score 35 sec's Timed Up and Go (TUG) Score 12 sec's Comments 12 secs w/o cane TUG Impairment Rating 20 to <40% Impaired (Score 12- 13) PT-OP-M Strength Start: 06/12/17 10:16 Freq: Status: Active Protocol: Document 09/03/17 10:31 LRN (Rec: 09/03/17 11:15 LRN [id number]) Hip Strength Hip Manual Muscle Testing Right External Rotation 3+ Fair+ Internal Rotation 3+ Fair+ Left External Rotation 3+ Fair+ Internal Rotation 3+ Fair+ PT-OP-Q Treatments Start: 06/12/17 10:16 Freq: Status: Active Protocol: Document 09/16/17 09:50 LRN (Rec: 09/16/17 10:34 LRN [id number]) Cardio Equipment Recumbent Stepper (Sci-Fit) Duration (Minutes) 12 Resistance 3 Seat Position 17 Other Arms the last 2 minutes Gym Equipment Cable Column (Body Solid) Leg Extension Resistance 45# Reps/Time 10x3 Leg Curl Details Added Quad set at end of each rep Resistance 55# Reps/Time 10x3 Therapeutic Exercises Standing Exercises 3 Standing Exercise Name With foot on 12 step: Hip flex lifts off step Side bilateral Reps/Minutes 10 x 3 Comments Pt Asst needed 2 Standing Exercise Name Stepping foot up on 12 height step Side bilateral Reps/Minutes 10x3 Comments 12 step up with anterior hip stretch. Pt needed rests between bouts. 1 Standing Exercise Name sit to stand Comments With UEs for 5xSTST Therapeutic Activity Therapeutic Activity 1 Name TUG Reps/Minutes 2 Self-Care/Home Management Treatment Education Patient Education Home Exercise Program Activities Self-Care/Home Management Activities Instructed pt in basic Rotator cuff ex's for L shoulder and educated pt in anatomy of L shoulder. Discussed therapy in the future for the shoulder . PT-OP-T Assessment and Plan Start: 06/12/17 10:16 Freq: Status: Active Protocol: Document 09/16/17 09:50 LRN (Rec: 09/16/17 16:34 LRN [id number]) Physical Therapy Assessment Rehab Potential Rehabilitation Potential Fair Impairments Impairments Balance Posture ROM Strength Other Impairments Self care: program needed. Other Concerns Fall Risk Yes Age Related Concerns Cardiac precautions, 81+ yrs old, bone & advanced prostate CA-currently receiving periodic chemotherapy treatments, bilateral foot neuropathy, R lower leg fracture with basilio 7-8 yrs ago. Barriers to Rehabilitation Currently undergoing cancer treatments in conjunction with therapy. Goals Seven Impairment Decreased endurance per 5TSTS of 20 secs with use of arms. Vp Strategy Goal (LTG) Pt will be able to get up from chair 5x using arms to assist in less than 20 sec's. LTG Duration 11/10/17 (09/16/17: 35 sec's) Six Impairment TUG Score 12-13 (20% to <40% impaired) Vp Strategy Goal (LTG) Improve Balance: TUG Score: 11 or less (1% < 20% impaired). LTG Duration 11/10/17 -11.5 sec's, 09/16-13 sec's. Five Impairment Decreased LE strength Chcf Goal (LTG) Pt will demonstrate improved LE strength by 1/2 grade to be able to get off the floor with use of chair for assist. LTG Duration 11/10/17 Four Impairment Thoracic weakness Vp Strategy Goal (LTG) Pt will be able to improve core strength 1/2 grade to decrease his risk of falling. LTG Duration 11/10/17 Three Impairment Hips flexed 3 deg's in standing Chcf Goal (LTG) Pt will be able to static stand without hip/knees flexed LTG Duration Goal Met Two Impairment Decreased postural awareness of good sitting posture Short Term Goal (STG) Pt will be able to self correct his sitting posture with cuing. 07/09/17: Pt is self correcting standing posture 50 % of the time STG Duration Goal met. One Impairment Lacks comprehensive HEP Vp Strategy Goal (LTG) Pt independent with HEP/Self care. LTG Duration 11/10/17 Progress Towards Goals Progress Towards Goals Slow Progress due to Medical Issues Assessment Summary Assessment Pt appears worse in his endurance (TUG & 5xSTST) due to recent onset of a cold and shingles. Pt had to hold his chemo treatment due to the same. Pt is enthusiastic to continue therapy and he has noted improved energy and function the day of therapy. The pt had questions regarding his L shoulder function. He appears to have a rotator cuff injury, but due to his other medical issues it is recommended he seek PT once he has completed his chemotherapy and can regain strength, posture and function . Physical Therapy Plan Frequency and Duration Frequency of Treatment 2x/Week Duration of Treatment 8 weeks Plan of Care Start Date 09/16/17 Plan of Care End Date 11/11/19 Therapeutic Interventions Therapeutic Interventions Balance Training Home Exercise Program Neuromuscular Re-education Self-Care/Home Management Therapeutic Activities Therapeutic Exercises Modalities Cold Pack/Ice Massage Hot Packs Next Visit Focus/Plan Next Note Type Treatment Note Next Visit Plan Pt to schedule more appts if appropriate. Monitor pt's Shingles status. Review hamstring stretch in sitting, hip ex's, and LE strength. Progress functional strength of pt to step up into his home machinery and to achieve sit to stand without use of UE's.
--- NOTE | 2017-09-19 15:32 | PT.OTN ---
Current Diagnoses Other symptoms and signs involving the musculoskeletal system (09/19/17) Weakness (09/19/17) Physical Therapy Treatment Note PT-OP-A Visit Information Start: 06/12/17 10:16 Freq: Status: Active Protocol: Document 09/19/17 09:00 LRN (Rec: 09/19/17 15:13 LRN [id number]) Out-Patient Physical Therapy Visit Information Visit Information Visit Type Discharge Summary Visit Note 02/20 after PN Visit Start Time 09:00 Visit Stop Time 09:45 Total Visit Minutes 45 Visit Number 34 Number of VP OF [employer] Visits 0 Evaluation Information Evaluation Date 05/03/17 PT-OP-C Subjective Start: 06/12/17 10:16 Freq: Status: Active Protocol: Document 09/19/17 09:00 LRN (Rec: 09/19/17 15:13 LRN [id number]) OP-PT Subjective Patient Comments Patient Comments Pt feeling okay. No significant change. Pt agreeable to being placed on HEP due to financial concerns. He will seek further therapy is he has a change in functional status. Patient Reported Progress Same PT-OP-E Functional Tests Start: 07/02/17 15:42 Freq: Status: Active Protocol: Document 09/16/17 09:50 LRN (Rec: 09/16/17 16:08 LRN [id number]) Functional Tests Five Times Sit to Stand Test Score 35 sec's Timed Up and Go (TUG) Score 12 sec's Comments 12 secs w/o cane TUG Impairment Rating 20 to <40% Impaired (Score 12- 13) PT-OP-M Strength Start: 06/12/17 10:16 Freq: Status: Active Protocol: Document 09/19/17 09:00 LRN (Rec: 09/19/17 15:13 LRN [id number]) Trunk Strength Trunk Manual Muscle Testing Testing Position Sitting Flexion 4 Good Extension 3- Fair- Rotation Left 4 Good Rotation Right 4 Good Lateral Flexion Left 3+ Fair+ Lateral Flexion Right 3+ Fair+ Core Stabilization Fair. Pt has difficulty maintaining core stability with movement of his LE's. Hip Strength Hip Manual Muscle Testing Right Flexion (L2) 1 Trace Extension (S1) 2- Poor- Abduction 3- Fair- Adduction 1 Trace External Rotation 3- Fair- Internal Rotation 3+ Fair+ Left Flexion (L2) 3 Fair Extension (S1) 1 Trace Abduction 3- Fair- Adduction 2- Poor- External Rotation 3- Fair- Internal Rotation 3+ Fair+ PT-OP-Q Treatments Start: 06/12/17 10:16 Freq: Status: Active Protocol: Document 09/19/17 09:00 LRN (Rec: 09/19/17 15:13 LRN [id number]) Gym Equipment Cable Column (Body Solid) Leg Extension Resistance 45# Reps/Time 10x3 Leg Curl Details Added Quad set at end of each rep Resistance 55# Reps/Time 10x3 Therapeutic Exercises Supine Exercises 2 Supine Exercise Name AROM & ARROM ex for strength assessment Side bilateral Reps/Minutes 15' Sidelying Exercises 2 Sidelying Exercise Name Clamshell Side bilateral Reps/Minutes 6' Sitting Exercises 1 Sitting Exercise Name Hip IR/ER strengthening. Side bilateral Reps/Minutes 6' Self-Care/Home Management Treatment Education Patient Education Home Exercise Program Activities Self-Care/Home Management Activities Issued and reviewed handout with ex's to address pt's hip weakness. Verbal review of his other Home ex's. PT-OP-T Assessment and Plan Start: 06/12/17 10:16 Freq: Status: Active Protocol: Document 09/19/17 09:00 LRN (Rec: 09/19/17 10:00 LRN [id number]) Physical Therapy Assessment Impairments Impairments Balance Posture ROM Strength Other Impairments Self care: program needed. Other Concerns Fall Risk Yes Age Related Concerns Cardiac precautions, 81+ yrs old, bone & advanced prostate CA-currently receiving periodic chemotherapy treatments, bilateral foot neuropathy, R lower leg fracture with basilio 7-8 yrs ago. Barriers to Rehabilitation Currently undergoing cancer treatments in conjunction with therapy. Goals Seven Impairment Decreased endurance per 5TSTS of 20 secs with use of arms. Marine Water Tender Goal (LTG) Pt will be able to get up from chair 5x using arms to assist in less than 20 sec's. LTG Duration GOAL NOT MET. Six Impairment TUG Score 12-13 (20% to <40% impaired) Snf Goal (LTG) Improve Balance: TUG Score: 11 or less (1% < 20% impaired). LTG Duration GOAL NOT MET Five Impairment Decreased LE strength Marine Water Tender Goal (LTG) Pt will demonstrate improved LE strength by 1/2 grade to be able to get off the floor with use of chair for assist. LTG Duration 11/10/17 GOAL MOSTLY NOT MET. Four Impairment Thoracic weakness Snf Goal (LTG) Pt will be able to improve core strength 1/2 grade to decrease his risk of falling. LTG Duration GOAL MET. Three Impairment Hips flexed 3 deg's in standing Snf Goal (LTG) Pt will be able to static stand without hip/knees flexed LTG Duration GOAL MET Two Impairment Decreased postural awareness of good sitting posture Short Term Goal (STG) Pt will be able to self correct his sitting posture with cuing. 07/09/17: Pt is self correcting standing posture 50 % of the time STG Duration GOAL MET One Impairment Lacks comprehensive HEP Snf Goal (LTG) Pt independent with HEP/Self care. LTG Duration GOAL MET Progress Towards Goals Progress Towards Goals Slow Progress due to Medical Issues Progress Comments Pt undergoing chemotherapy treatments throughout his rehabilitation. Assessment Summary Assessment Good improvement with trunk strength from 3-/5 grossly to3 -4/5. He has had some improvement with L hip AD strength. Worsening with R hip flex, ext & IR, and L hip Ext, IR strength. Overall the pt feels his function has been up and down due to his chemo treatments. Functional tests (TUG & 5xSTST) shows decreased endurance, which may be due to a recent cold and shingles when tested. The pt has been educated in home ex's to help progress his strength and function in areas of need . The pt may need therapy in the future if his function declines due to ongoing chemotherapy treatments. Physical Therapy Plan Next Visit Focus/Plan Next Note Type Discharge Summary Next Visit Plan Pt is being discharged to his [facility].
== END 2017-09-26 10:26 ==
LOC: PHYS 09:45
PROVIDERS: Family Provider Family Medicine; PCP Family Medicine; Visit Provider Family Medicine
DX: R53.1 Weakness (principal); R29.898 Other symptoms and signs involving the musculoskeletal system
CPT/HCPCS: 97110; 97112; 97535